=== PATIENT | female | born 1960 | race Caucasian/White ===

== ENCOUNTER 2018-01-13 16:05 | Inpatient (IN) ==
[2018-01-13] MEDS ORDERED: 0.9 % Sodium Chloride 1,000 ML IVC ONE (16:19)
[2018-01-13] MEDS ORDERED: Ondansetron 4 MG/2 ML VIAL IVP ONE ×2 (16:21→18:07)
--- NOTE | 2018-01-13 16:24 | Emergency Department Note ---
Disposition Clinical Impression: Colitis Disposition: Admitted As Inpatient Condition: Fair General Adult HPI - General Chief complaint: ED Dizziness Stated complaint: low bp, weakness Time Seen by Provider: 01/13/18 16:08 Source: patient, EMS Limitations: no limitations Nursing Notes Reviewed: Yes Vital Signs Reviewed: Yes - History of Present Illness Pain Scale: 5 - Related Data Home Medications Medication Instructions Recorded Confirmed Albuterol Sulfate [Albuterol 2 puff IH Q4HR 12/13/15 01/13/18 Inhaler] Aspirin [Lo-Dose Aspirin EC] 81 mg PO DAILY 12/13/15 01/13/18 Ibuprofen [Motrin] 600 mg PO Q8HR PRN 12/13/15 01/13/18 Loratadine [Allergy Relief] 10 mg PO DAILY 12/13/15 01/13/18 Metoprolol [Lopressor] 50 mg PO DAILY 12/13/15 01/13/18 Nitroglycerin [Nitrostat] 0.4 mg SL PRN PRN 12/13/15 01/13/18 RX: Melatonin 5 mg PO HS 12/13/15 01/13/18 RX: metFORMIN [Glucophage] 1,000 mg PO DAILY 12/13/15 01/13/18 Ranolazine [Ranexa] 1,000 mg PO BID 12/13/15 01/13/18 Cholecalciferol (Vitamin D3) 2,000 unit PO DAILY 07/11/17 01/13/18 [Vitamin D3] Cyanocobalamin (Vitamin B-12) 1,000 mcg PO DAILY 07/11/17 01/13/18 [Vitamin B-12] Gabapentin [Neurontin] 300 mg PO BID 07/11/17 01/13/18 Pantoprazole Sodium [Protonix] 40 mg PO QAM 07/11/17 01/13/18 Rosuvastatin Calcium [Crestor] 10 mg PO DAILY 07/11/17 01/13/18 Fluticasone/Vilanterol [Breo 1 puff IH DAILY 01/13/18 01/13/18 Ellipta 200-25 Mcg INH] RX: Lisinopril-HCTZ 20-12.5 1 tab PO Q12H 01/13/18 01/13/18 [Prinzide 20-12.5] RX: Trazodone HCl 150 mg PO HS 01/13/18 01/13/18 Roflumilast [Daliresp] 500 mcg PO DAILY 01/13/18 01/13/18 Tiotropium [place] [Spiriva 2 puff IH DAILY 01/13/18 01/13/18 Respimat] Allergies Allergy/AdvReac Type Severity Reaction Status Date / Time aminophylline Allergy Anaphylaxis Verified 07/11/17 19:55 atorvastatin AdvReac Gastrointestinal Verified 07/11/17 19:55 Upset Penicillins AdvReac Hives Verified 07/11/17 19:55 Sulfa (Sulfonamide AdvReac Hives Verified 07/11/17 19:55 Antibiotics) regadenosen Allergy Swelling Uncoded 07/11/17 19:55 of Lip/Tongue/Throat Past Medical History - Past Medical History Medical history: Reports: asthma, cancer, COPD, diabetes, hypertension, myocardial infarction Surgical history: Reports: angioplasty/stent, cancer surgery, cholecystectomy Psychiatric history: Reports: no psych history 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 - Social History Smoking Status: Former smoker Smokeless Tobacco Status: No Alcohol use: Reports: none Drug use: Reports: none Physical Exam - General Limitations: no limitations General appearance: alert, in no apparent distress Course Vital Signs Temperature 98.3 F 01/13/18 16:14 Pulse Rate 71 01/13/18 16:14 Respiratory Rate 18 01/13/18 16:14 Blood Pressure 90/63 01/13/18 16:14 O2 Sat by Pulse Oximetry 97 01/13/18 16:14 Temperature 98.3 F 01/13/18 16:14 Pulse Rate 74 01/13/18 21:06 Respiratory Rate 18 01/13/18 21:06 Blood Pressure 112/79 01/13/18 21:06 O2 Sat by Pulse Oximetry 95 01/13/18 21:06 Oxygen Delivery Oxygen Delivery Room Air Medical Decision Making - [facility] Narrative Medical decision making narrative: Chest X-Ray 01/13/18 16:19 IMPRESSION: No acute abnormality detected. D/ / Chandra Melchor MD / Chandra Melchor MD Interpreting Provider: Chandra Melchor MD Abdomen/Pelvis CT 11/16/18 16:58 IMPRESSION: 1. Inflammatory changes involving a 10 cm segment of the proximal right colon and cecum concerning for acute mild-moderate colitis. No abscess. No free intraperitoneal air. Follow-up recommended to confirm resolution. 2. Normal appendix. D/ / 01/13/2018 18:01:51 Antonio Trammell MD / gelacio Interpreting Provider: Antonio Trammell MD 1800 hrs.: Patient has colitis as we suspected no signs of abscess or appendicitis. We will bring her into the hospital. Her blood pressures now in the low 100s. I think with her living is happened to her today be prudent to bring her into the hospital. She is in agreement with this plan. Impressions abdominal pain nausea vomiting dehydration, hypotension improved, and colitis. - Lab Data Result diagrams: 01/13/18 16:35 01/13/18 16:35 Lab Results 01/13/18 01/13/18 01/13/18 Range/Units 16:25 16:35 16:35 WBC 3.6 L (4.3-11.1) K/mcL RBC 3.91 (3.82-4.97) M/mcL Hgb 12.7 (11.5-15.4) g/dL Hct 36.2 (35.3-44.9) % MCV 92.6 (83.0-100.0) fL MCH 32.5 (28.0-33.3) pg MCHC 35.1 (31.6-35.5) g/dL RDW 13.2 (11.5-14.5) % Plt Count 97 L (140-400) K/mcL MPV 11.5 (9.4-12.4) fL Immature Gran % 0.6 (0-4) % Seg Neutrophils % 55.8 % Lymphocytes % 32.7 % Monocytes % 10.0 % Eosinophils % 0.6 % Basophils % 0.3 % Neutrophils # 2.0 (1.6-8.9) K/mcL Lymphocytes # 1.2 (0.6-4.6) K/mcL Monocytes # 0.4 (0.0-1.3) K/mcL Eosinophils # 0.0 (0.0-0.6) K/mcL Basophils # 0.0 (0.0-0.2) K/mcL Reactive Lymphocytes Present A (Not Present) Platelet Estimate Decreased L (Normal) Immature Plt Fraction 7.6 H (1.1-6.1) % Sodium 140 (136-145) mEq/L Potassium 2.6 L (3.5-5.1) mEq/L Chloride 103 (98-107) mEq/L Carbon Dioxide 29 (23-29) mEq/L BUN 33 H (6-20) mg/dL Creatinine 1.37 H (0.60-1.20) mg/dL Est GFR ( Amer) 49 L (> 60) Est GFR (Non-Af Amer) 40 L (> 60) BUN/Creatinine Ratio 24 (6-26) Glucose 110 H (70-105) mg/dL Calculated Osmolality 298 (280-300) Lactic Acid (0.5-2.2) mmol/L Calcium 8.5 L (8.6-10.3) mg/dL Total Bilirubin 0.2 L (0.3-1.0) mg/dL AST 20 (13-39) Units/L ALT 15 (7-52) Units/L Alkaline Phosphatase 39 (34-104) Units/L Troponin I 0.03 (< 0.04) ng/mL Serum Total Protein 5.7 L (6.4-8.9) g/dL Albumin 3.3 L (3.5-5.7) g/dL Globulin 2.4 (2.4-3.5) g/dL Albumin/Globulin Ratio 1.4 (1.1-2.2) TSH 1.093 (0.340-5.600) mcIU/mL Urine Color (Yellow) Urine Clarity (Clear) Urine pH (5.0-8.0) pH Units Ur Specific [place] (1.010-1.025) Urine Protein (Neg-Trace) mg/dL Urine Glucose (UA) (Normal) mg/dL Urine Ketones (Negative) mg/dL Urine Blood (Negative) Urine Nitrite (Negative) Urine Bilirubin (Negative) Urine Urobilinogen (Normal) mg/dL Ur Leukocyte Esterase (Negative) Urine Microscopic RBC (0-3) per hpf Urine Microscopic WBC (0-3) per hpf Ur Squamous Epith Cells (None-Few) per lpf Urine Bacteria (None-Few) per hpf Hyaline Casts (None-Few) per lpf Ur Culture Indicated? (NO) Stool Occult Bld Scrn Positive A (Negative) 01/13/18 01/13/18 Range/Units 16:35 17:05 WBC (4.3-11.1) K/mcL RBC (3.82-4.97) M/mcL Hgb (11.5-15.4) g/dL Hct (35.3-44.9) % MCV (83.0-100.0) fL MCH (28.0-33.3) pg MCHC (31.6-35.5) g/dL RDW (11.5-14.5) % Plt Count (140-400) K/mcL MPV (9.4-12.4) fL Immature Gran % (0-4) % Seg Neutrophils % % Lymphocytes % % Monocytes % % Eosinophils % % Basophils % % Neutrophils # (1.6-8.9) K/mcL Lymphocytes # (0.6-4.6) K/mcL Monocytes # (0.0-1.3) K/mcL Eosinophils # (0.0-0.6) K/mcL Basophils # (0.0-0.2) K/mcL Reactive Lymphocytes (Not Present) Platelet Estimate (Normal) Immature Plt Fraction (1.1-6.1) % Sodium (136-145) mEq/L Potassium (3.5-5.1) mEq/L Chloride (98-107) mEq/L Carbon Dioxide (23-29) mEq/L BUN (6-20) mg/dL Creatinine (0.60-1.20) mg/dL Est GFR ( Amer) (> 60) Est GFR (Non-Af Amer) (> 60) BUN/Creatinine Ratio (6-26) Glucose (70-105) mg/dL Calculated Osmolality (280-300) Lactic Acid 0.8 (0.5-2.2) mmol/L Calcium (8.6-10.3) mg/dL Total Bilirubin (0.3-1.0) mg/dL AST (13-39) Units/L ALT (7-52) Units/L Alkaline Phosphatase (34-104) Units/L Troponin I (< 0.04) ng/mL Serum Total Protein (6.4-8.9) g/dL Albumin (3.5-5.7) g/dL Globulin (2.4-3.5) g/dL Albumin/Globulin Ratio (1.1-2.2) TSH (0.340-5.600) mcIU/mL Urine Color Yellow (Yellow) Urine Clarity Cloudy A (Clear) Urine pH 7.0 (5.0-8.0) pH Units Ur Specific [place] 1.005 L (1.010-1.025) Urine Protein Trace (Neg-Trace) mg/dL Urine Glucose (UA) Normal (Normal) mg/dL Urine Ketones Negative (Negative) mg/dL Urine Blood Negative (Negative) Urine Nitrite Negative (Negative) Urine Bilirubin Negative (Negative) Urine Urobilinogen Normal (Normal) mg/dL Ur Leukocyte Esterase Negative (Negative) Urine Microscopic RBC 3-5 H (0-3) per hpf Urine Microscopic WBC 3-5 H (0-3) per hpf Ur Squamous Epith Cells Many H (None-Few) per lpf Urine Bacteria None Seen (None-Few) per hpf Hyaline Casts None Seen (None-Few) per lpf Ur Culture Indicated? NO (NO) Stool Occult Bld Scrn (Negative) Critical Care Time Critical Care Time: Yes Total Critical Care Time: 34 Attestation: Excluding any seperatly billable procedures Attestation Statement - Attestation Attestation: This documentation is done with the assistance of Dragon dictation. Despite e fforts made to ensure accuracy, there may be inaccuracies in air sealing technician or spelling and typographical errors. I examined this patient and my medical decision-making was reviewed with the Resident Physician. I agree with the documented findings, disposition and treatment plan as described except to the extent set forth below. Patient seen and evaluated by Dr. Steward and myself, I agree with his evaluation and management plan, I supervised care the patient's stay. Patient presents with low blood pressure home with with a systolic 74. She has been lightheaded. She said last 3 days she has had nausea vomiting and diarrhea said a lot of cramping in her abdomen. Denies any chest pain. Known ulcers L at home. She started on some Zofran by her primary care physician yesterday and also started on some loperamide. Should she has had diarrhea since then. Were going to fluid hydrate her. Give her something for nausea check labs CT her abdomen and reassess. She is in agreement with this plan.
--- NOTE | 2018-01-13 16:38 | Emergency Department Note ---
Disposition Clinical Impression: Colitis Disposition: Admitted As Inpatient Condition: Fair General Adult HPI - General Chief complaint: ED Dizziness Stated complaint: low bp, weakness Time Seen by Provider: 01/13/18 16:08 Source: patient, EMS Limitations: no limitations - History of Present Illness HPI Narrative: Patient is a 57 year old female with PMH of CAD, COPD, HTN, DM2 who presents with "low blood pressure" with history of 5 days of nausea, vomiting, diarrhea. Pt reports that she has been having 5 episodes of nonbloody emesis and numerous episodes of diarrhea per day. Pt reports that she has seen BRB in her stool for the past three days. Pt reports associated diffuse generalized abdominal pain. Pt states that she went to her PCP yesterday who prescribed her with zofran and lamotil for her symptoms. Pt reports no vomiting and diarrhea in the past 24 hrs. Pt has been able to tolerate jello and gatorade in past 24 hrs. Pt reports that her mother took her blood pressure today and it was 70s/30s. Pt called her PCP who advised her to come to the ED. Patient denies syncope, CP, SOB, cough, congestion, CHAN, numbness, weakness.. Pain Scale: 5 - Related Data Home Medications Medication Instructions Recorded Confirmed Albuterol Sulfate [Albuterol 2 puff IH Q4HR 12/13/15 01/13/18 Inhaler] Aspirin [Lo-Dose Aspirin EC] 81 mg PO DAILY 12/13/15 01/13/18 Ibuprofen [Motrin] 600 mg PO Q8HR PRN 12/13/15 01/13/18 Loratadine [Allergy Relief] 10 mg PO DAILY 12/13/15 01/13/18 Melatonin 5 mg PO HS 12/13/15 01/13/18 Metoprolol [Lopressor] 50 mg PO DAILY 12/13/15 01/13/18 Nitroglycerin [Nitrostat] 0.4 mg SL PRN PRN 12/13/15 01/13/18 Ranolazine [Ranexa] 1,000 mg PO BID 12/13/15 01/13/18 metFORMIN [Glucophage] 1,000 mg PO DAILY 12/13/15 01/13/18 Cholecalciferol (Vitamin D3) 2,000 unit PO DAILY 07/11/17 01/13/18 [Vitamin D3] Cyanocobalamin (Vitamin B-12) 1,000 mcg PO DAILY 07/11/17 01/13/18 [Vitamin B-12] Gabapentin [Neurontin] 300 mg PO BID 07/11/17 01/13/18 Pantoprazole Sodium [Protonix] 40 mg PO QAM 07/11/17 01/13/18 Rosuvastatin Calcium [Crestor] 10 mg PO DAILY 07/11/17 01/13/18 Fluticasone/Vilanterol [Breo 1 puff IH DAILY 01/13/18 01/13/18 Ellipta 200-25 Mcg INH] Lisinopril-HCTZ 20-12.5 [Prinzide 1 tab PO Q12H 01/13/18 01/13/18 20-12.5] Roflumilast [Daliresp] 500 mcg PO DAILY 01/13/18 01/13/18 Tiotropium [place] [Spiriva 2 puff IH DAILY 01/13/18 01/13/18 Respimat] Trazodone HCl 150 mg PO HS 01/13/18 01/13/18 Allergies Allergy/AdvReac Type Severity Reaction Status Date / Time aminophylline Allergy Anaphylaxis Verified 07/11/17 19:55 atorvastatin AdvReac Gastrointestinal Verified 07/11/17 19:55 Upset Penicillins AdvReac Hives Verified 07/11/17 19:55 Sulfa (Sulfonamide AdvReac Hives Verified 07/11/17 19:55 Antibiotics) regadenosen Allergy Swelling Uncoded 07/11/17 19:55 of Lip/Tongue/Throat Constitutional: Reports: chills. Denies: fever ENT ED: Denies: throat pain, congestion Cardiovascular: Denies: chest pain, palpitations, syncope Respiratory: Denies: cough, dyspnea Gastrointestinal: Reports: abdominal pain, nausea, vomiting, diarrhea, other (BRB per stool) Genitourinary: Denies: dysuria, hematuria Musculoskeletal: Denies: back pain Neurological: Denies: headache, weakness, numbness Past Medical History - Past Medical History Medical history: Reports: asthma, cancer, COPD, diabetes, hypertension, myocardial infarction Surgical history: Reports: angioplasty/stent, cancer surgery, cholecystectomy Psychiatric history: Reports: no psych history 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 - Social History Smoking Status: Former smoker Smokeless Tobacco Status: No Alcohol use: Reports: none Drug use: Reports: none Physical Exam - General Limitations: no limitations General appearance: alert, in no apparent distress - Head Head exam: atraumatic, normocephalic - ENT ENT exam: mucous membranes dry - Chest Chest inspection: Present: normal inspection, symmetric chest wall rise - Respiratory Respiratory exam: Present: normal lung sounds bilaterally - Cardiovascular Cardiovascular exam: Present: regular rate, normal rhythm, normal heart sounds - Abdominal Exam Abdominal exam: Present: soft, tenderness, distention. Absent: guarding, rebound Abdominal tenderness: Present: diffuse - Extremities Exam Extremities exam: Present: normal inspection, full ROM. Absent: tenderness, pedal edema - Expanded Lower Extremity Exam Neurovascular/Tendon exam: Present: normal capillary refill - Back Exam Back exam: Absent: tenderness, CVA tenderness (R), CVA tenderness (L) - Neurological Exam Neurological exam: Present: alert, oriented X3 - Skin Skin exam: Present: warm, dry, intact, normal color Course Vital Signs Temperature 98.3 F 01/13/18 16:14 Pulse Rate 71 01/13/18 16:14 Respiratory Rate 18 01/13/18 16:14 Blood Pressure 90/63 01/13/18 16:14 O2 Sat by Pulse Oximetry 97 01/13/18 16:14 Temperature 98.3 F 01/13/18 16:14 Pulse Rate 71 01/13/18 16:14 Respiratory Rate 18 01/13/18 16:14 Blood Pressure 90/63 01/13/18 16:14 O2 Sat by Pulse Oximetry 97 01/13/18 16:14 Oxygen Delivery Oxygen Delivery Room Air Medical Decision Making - Lab Data Result diagrams: 01/13/18 16:35 01/13/18 16:35
--- NOTE | 2018-01-13 16:50 | Emergency Department Note ---
Disposition Clinical Impression: Colitis Disposition: Admitted As Inpatient Condition: Fair Referrals: Concepción Romero MD [Primary Care Provider] - Forms: ED Satisfaction Letter Time of Disposition: 19:50 General Adult HPI - General Chief complaint: ED Dizziness Stated complaint: low bp, weakness Time Seen by Provider: 01/13/18 16:08 Source: patient, EMS Mode of arrival: ambulatory Limitations: no limitations Nursing Notes Reviewed: Yes Vital Signs Reviewed: Yes - History of Present Illness HPI Narrative: Patient is a 57-year-old female with past medical history of COPD, diabetes, HTN, HI, presents to the emergency department for evaluation of nausea, vomiting and diarrhea. Patient states that her symptoms of been going on for the past 5 days. Patient states that she has noticed a small amount of light red blood in her stools. She is seen by her PCP yesterday in which she was prescribed Zofran and Lomotil. Patient states her symptoms have resolved since yesterday and she has been able tolerate by mouth with the medications described by PCP however she continues to have abdominal pain which she states have been going on for the past 3 days. She points to her left lower quadrant as the location of pain. Pain Scale: 5 - Related Data Home Medications Medication Instructions Recorded Confirmed Albuterol Sulfate [Albuterol 2 puff IH Q4HR 12/13/15 01/13/18 Inhaler] Aspirin [Lo-Dose Aspirin EC] 81 mg PO DAILY 12/13/15 01/13/18 Ibuprofen [Motrin] 600 mg PO Q8HR PRN 12/13/15 01/13/18 Loratadine [Allergy Relief] 10 mg PO DAILY 12/13/15 01/13/18 Melatonin 5 mg PO HS 12/13/15 01/13/18 Metoprolol [Lopressor] 50 mg PO DAILY 12/13/15 01/13/18 Nitroglycerin [Nitrostat] 0.4 mg SL PRN PRN 12/13/15 01/13/18 Ranolazine [Ranexa] 1,000 mg PO BID 12/13/15 01/13/18 metFORMIN [Glucophage] 1,000 mg PO DAILY 12/13/15 01/13/18 Cholecalciferol (Vitamin D3) 2,000 unit PO DAILY 07/11/17 01/13/18 [Vitamin D3] Cyanocobalamin (Vitamin B-12) 1,000 mcg PO DAILY 07/11/17 01/13/18 [Vitamin B-12] Gabapentin [Neurontin] 300 mg PO BID 07/11/17 01/13/18 Pantoprazole Sodium [Protonix] 40 mg PO QAM 07/11/17 01/13/18 Rosuvastatin Calcium [Crestor] 10 mg PO DAILY 07/11/17 01/13/18 Fluticasone/Vilanterol [Breo 1 puff IH DAILY 01/13/18 01/13/18 Ellipta 200-25 Mcg INH] Lisinopril-HCTZ 20-12.5 [Prinzide 1 tab PO Q12H 01/13/18 01/13/18 20-12.5] Roflumilast [Daliresp] 500 mcg PO DAILY 01/13/18 01/13/18 Tiotropium [place] [Spiriva 2 puff IH DAILY 01/13/18 01/13/18 Respimat] Trazodone HCl 150 mg PO HS 01/13/18 01/13/18 Allergies Allergy/AdvReac Type Severity Reaction Status Date / Time aminophylline Allergy Anaphylaxis Verified 07/11/17 19:55 atorvastatin AdvReac Gastrointestinal Verified 07/11/17 19:55 Upset Penicillins AdvReac Hives Verified 07/11/17 19:55 Sulfa (Sulfonamide AdvReac Hives Verified 07/11/17 19:55 Antibiotics) regadenosen Allergy Swelling Uncoded 07/11/17 19:55 of Lip/Tongue/Throat All systems ED: reviewed and negative except as stated. Review of Systems: As Per HPI Constitutional: Reports: chills. Denies: fever ENT ED: Denies: throat pain, congestion Cardiovascular: Denies: chest pain, palpitations, syncope Respiratory: Denies: cough, dyspnea Gastrointestinal: Reports: abdominal pain, nausea, vomiting, diarrhea, other (BRB per stool) Genitourinary: Denies: dysuria, hematuria Musculoskeletal: Denies: back pain Neurological: Denies: headache, weakness, numbness Past Medical History - Past Medical History Attestation: Yes The following information was validated with the patient. 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 No acute distress at this time. BP is 98 systolic at this time. - General Limitations: no limitations General appearance: alert, in no apparent distress - Head Head exam: atraumatic, normocephalic, normal inspection - Eye Eye exam: Present: normal appearance, PERRL, EOMI - ENT ENT exam: normal exam, mucous membranes dry, TM's normal bilaterally - Neck Neck exam: Present: normal inspection, full ROM, trachea midline - Chest Chest inspection: Present: normal inspection, symmetric chest wall rise. Absent: tenderness - Respiratory Respiratory exam: Present: normal lung sounds bilaterally. Absent: respiratory distress, wheezes - Cardiovascular Cardiovascular exam: Present: regular rate, normal rhythm, normal heart sounds, +S1, +S2 - Abdominal Exam Abdominal exam: Present: tenderness, guarding, normal bowel sounds. Absent: distention, rebound, rigidity Abdominal tenderness: Present: LLQ - Extremities Exam Extremities exam: Present: normal inspection, full ROM, normal capillary refill. Absent: tenderness - Back Exam Back exam: Present: normal inspection, full ROM. Absent: tenderness - Neurological Exam Neurological exam: Present: alert, oriented X3 - Psychiatric Psychiatric exam: Present: normal affect, normal mood - Skin Skin exam: Present: warm, dry, intact, normal color Course Course Narrative: Patient underwent evaluation for her symptoms of nausea, vomiting and diarrhea. She is found to be hypokalemic at 2.6. She is also found to have AK I. Patient received 2 L of fluid which improved her blood pressure from the 90s systolic to the 120s systolic. She is feeling much better after fluids. CT scan was concerning for colitis. I discussed the patient's case with the hospitalist on- call plan to bring her in for admission for further management. Dr. Palacios agreed to accept the patient requested that I add on a C. difficile panel as well as metronidazole and ciprofloxacin. Vital Signs Temperature 98.3 F 01/13/18 16:14 Pulse Rate 71 01/13/18 16:14 Respiratory Rate 18 01/13/18 16:14 Blood Pressure 90/63 01/13/18 16:14 O2 Sat by Pulse Oximetry 97 01/13/18 16:14 Temperature 98.3 F 01/13/18 16:14 Pulse Rate 72 01/13/18 18:49 Respiratory Rate 18 01/13/18 18:49 Blood Pressure 118/74 01/13/18 18:49 O2 Sat by Pulse Oximetry 97 01/13/18 18:49 Oxygen Delivery Oxygen Delivery Room Air Medical Decision Making - Medical Records Medical records reviewed: Yes I reviewed the patient's medical records. - Lab Data Lab results reviewed: Yes I reviewed the patient's lab results. Result diagrams: 01/13/18 16:35 01/13/18 16:35 Lab Results 01/13/18 01/13/18 01/13/18 Range/Units 16:25 16:35 16:35 WBC 3.6 L (4.3-11.1) K/mcL RBC 3.91 (3.82-4.97) M/mcL Hgb 12.7 (11.5-15.4) g/dL Hct 36.2 (35.3-44.9) % MCV 92.6 (83.0-100.0) fL MCH 32.5 (28.0-33.3) pg MCHC 35.1 (31.6-35.5) g/dL RDW 13.2 (11.5-14.5) % Plt Count 97 L (140-400) K/mcL MPV 11.5 (9.4-12.4) fL Immature Gran % 0.6 (0-4) % Seg Neutrophils % 55.8 % Lymphocytes % 32.7 % Monocytes % 10.0 % Eosinophils % 0.6 % Basophils % 0.3 % Neutrophils # 2.0 (1.6-8.9) K/mcL Lymphocytes # 1.2 (0.6-4.6) K/mcL Monocytes # 0.4 (0.0-1.3) K/mcL Eosinophils # 0.0 (0.0-0.6) K/mcL Basophils # 0.0 (0.0-0.2) K/mcL Reactive Lymphocytes Present A (Not Present) Platelet Estimate Decreased L (Normal) Immature Plt Fraction 7.6 H (1.1-6.1) % Sodium 140 (136-145) mEq/L Potassium 2.6 L (3.5-5.1) mEq/L Chloride 103 (98-107) mEq/L Carbon Dioxide 29 (23-29) mEq/L BUN 33 H (6-20) mg/dL Creatinine 1.37 H (0.60-1.20) mg/dL Est GFR ( Amer) 49 L (> 60) Est GFR (Non-Af Amer) 40 L (> 60) BUN/Creatinine Ratio 24 (6-26) Glucose 110 H (70-105) mg/dL Calculated Osmolality 298 (280-300) Lactic Acid (0.5-2.2) mmol/L Calcium 8.5 L (8.6-10.3) mg/dL Total Bilirubin 0.2 L (0.3-1.0) mg/dL AST 20 (13-39) Units/L ALT 15 (7-52) Units/L Alkaline Phosphatase 39 (34-104) Units/L Troponin I 0.03 (< 0.04) ng/mL Serum Total Protein 5.7 L (6.4-8.9) g/dL Albumin 3.3 L (3.5-5.7) g/dL Globulin 2.4 (2.4-3.5) g/dL Albumin/Globulin Ratio 1.4 (1.1-2.2) TSH 1.093 (0.340-5.600) mcIU/mL Urine Color (Yellow) Urine Clarity (Clear) Urine pH (5.0-8.0) pH Units Ur Specific [place] (1.010-1.025) Urine Protein (Neg-Trace) mg/dL Urine Glucose (UA) (Normal) mg/dL Urine Ketones (Negative) mg/dL Urine Blood (Negative) Urine Nitrite (Negative) Urine Bilirubin (Negative) Urine Urobilinogen (Normal) mg/dL Ur Leukocyte Esterase (Negative) Urine Microscopic RBC (0-3) per hpf Urine Microscopic WBC (0-3) per hpf Ur Squamous Epith Cells (None-Few) per lpf Urine Bacteria (None-Few) per hpf Hyaline Casts (None-Few) per lpf Ur Culture Indicated? (NO) Stool Occult Bld Scrn Positive A (Negative) 01/13/18 01/13/18 Range/Units 16:35 17:05 WBC (4.3-11.1) K/mcL RBC (3.82-4.97) M/mcL Hgb (11.5-15.4) g/dL Hct (35.3-44.9) % MCV (83.0-100.0) fL MCH (28.0-33.3) pg MCHC (31.6-35.5) g/dL RDW (11.5-14.5) % Plt Count (140-400) K/mcL MPV (9.4-12.4) fL Immature Gran % (0-4) % Seg Neutrophils % % Lymphocytes % % Monocytes % % Eosinophils % % Basophils % % Neutrophils # (1.6-8.9) K/mcL Lymphocytes # (0.6-4.6) K/mcL Monocytes # (0.0-1.3) K/mcL Eosinophils # (0.0-0.6) K/mcL Basophils # (0.0-0.2) K/mcL Reactive Lymphocytes (Not Present) Platelet Estimate (Normal) Immature Plt Fraction (1.1-6.1) % Sodium (136-145) mEq/L Potassium (3.5-5.1) mEq/L Chloride (98-107) mEq/L Carbon Dioxide (23-29) mEq/L BUN (6-20) mg/dL Creatinine (0.60-1.20) mg/dL Est GFR ( Amer) (> 60) Est GFR (Non-Af Amer) (> 60) BUN/Creatinine Ratio (6-26) Glucose (70-105) mg/dL Calculated Osmolality (280-300) Lactic Acid 0.8 (0.5-2.2) mmol/L Calcium (8.6-10.3) mg/dL Total Bilirubin (0.3-1.0) mg/dL AST (13-39) Units/L ALT (7-52) Units/L Alkaline Phosphatase (34-104) Units/L Troponin I (< 0.04) ng/mL Serum Total Protein (6.4-8.9) g/dL Albumin (3.5-5.7) g/dL Globulin (2.4-3.5) g/dL Albumin/Globulin Ratio (1.1-2.2) TSH (0.340-5.600) mcIU/mL Urine Color Yellow (Yellow) Urine Clarity Cloudy A (Clear) Urine pH 7.0 (5.0-8.0) pH Units Ur Specific [place] 1.005 L (1.010-1.025) Urine Protein Trace (Neg-Trace) mg/dL Urine Glucose (UA) Normal (Normal) mg/dL Urine Ketones Negative (Negative) mg/dL Urine Blood Negative (Negative) Urine Nitrite Negative (Negative) Urine Bilirubin Negative (Negative) Urine Urobilinogen Normal (Normal) mg/dL Ur Leukocyte Esterase Negative (Negative) Urine Microscopic RBC 3-5 H (0-3) per hpf Urine Microscopic WBC 3-5 H (0-3) per hpf Ur Squamous Epith Cells Many H (None-Few) per lpf Urine Bacteria None Seen (None-Few) per hpf Hyaline Casts None Seen (None-Few) per lpf Ur Culture Indicated? NO (NO) Stool Occult Bld Scrn (Negative) - Radiology Data Radiology results reviewed: Yes I reviewed the patient's radiology results. Chest X-Ray 01/13/18 16:19 IMPRESSION: No acute abnormality detected. D/ / Chandra Melchor MD / Chandra Melchor MD Interpreting Provider: Chandra Melchor MD Abdomen/Pelvis CT 01/13/18 16:58 IMPRESSION: 1. Inflammatory changes involving a 10 cm segment of the proximal right colon and cecum concerning for acute mild-moderate colitis. No abscess. No free intraperitoneal air. Follow-up recommended to confirm resolution. 2. Normal appendix. D/ / 01/13/2018 18:01:51 Antonio Trammell MD / gelacio Interpreting Provider: Antonio Trammell MD - EKG Data EKG #1 EKG attestation: Yes I reviewed and interpreted this EKG. EKG results narrative: EKG done at 16:46 shows sinus rhythm at a rate of 70 bpm. Normal axis. Intervals show a Q TC of 553. No STEMI.
[2018-01-13 16:55] LABS: Basophils % 0.3 %; Eosinophils % 0.6 %; Hematocrit 36.2 % (35.3-44.9); Hemoglobin 12.7 g/dL (11.5-15.4); Immature Granulocytes % 0.6 % (0-4); Immature Platelets 7.6 % (1.1-6.1); Lymphocytes # 1.2 K/mcL (0.6-4.6); Lymphocytes % 32.7 %; Mean Corpuscular HGB Conc 35.1 g/dL (31.6-35.5); Mean Corpuscular Hemoglobin 32.5 pg (28.0-33.3); Mean Corpuscular Volume 92.6 fL (83.0-100.0); Mean Platelet Volume 11.5 fL (9.4-12.4); Monocytes # 0.4 K/mcL (0.0-1.3); Red Blood Count 3.91 M/mcL (3.82-4.97); Red Cell Distribution Width 13.2 % (11.5-14.5); Segmented Neutrophils % 55.8 %
[2018-01-13 16:57] LABS: Platelet Count 97 K/mcL (140-400)
[2018-01-13] MEDS ORDERED: Isovue-370 500 ML INFUS..BTL IV ONE (16:58)
[2018-01-13 17:07] LABS: Platelet Estimate Decreased (Normal); Reactive Lymphocytes Present (Not Present)
[2018-01-13 17:10] LABS: Troponin I 0.03 ng/mL (< 0.04)
[2018-01-13 17:14] LABS: Albumin 3.3 g/dL (3.5-5.7); Albumin/Globulin Ratio 1.4 (1.1-2.2); Bilirubin,Total 0.2 mg/dL (0.3-1.0); Calcium 8.5 mg/dL (8.6-10.3); Globulin 2.4 g/dL (2.4-3.5); Potassium 2.6 mEq/L (3.5-5.1); Total Protein 5.7 g/dL (6.4-8.9)
[2018-01-13 17:16] LABS: Bilirubin,Urine Negative (Negative); Blood,Urine Negative (Negative); Clarity,Urine Cloudy (Clear); Color,Urine Yellow (Yellow); Glucose,Urine (UA) Normal (Normal); Ketones,Urine Negative (Negative); Leukocyte Esterase,Urine Negative (Negative); Nitrite,Urine Negative (Negative); Protein,Urine Trace mg/dL (Neg-Trace); Specific Gravity,Urine 1.005 (1.010-1.025); Urobilinogen,Urine Normal (Normal)
[2018-01-13 17:18] LABS: Bacteria,Urine None Seen per hpf (None-Few); Hyaline Casts,Urine None Seen per lpf (None-Few); Squamous Epithelial Cell,Urine Many per lpf (None-Few)
[2018-01-13 17:22] LABS: Thyroid Stimulating Hormone 1.093 mcIU/mL (0.340-5.600)
[2018-01-13] MEDS ORDERED: Potassium Chloride 40 MEQ, Lidocaine 1% 2 ML in D5% in Water 500 ML IVPB ONE (17:37)
[2018-01-13] MEDS ORDERED: MetroNIDAZOLE 500 MG/100 ML 500 MG/100 ML BAG IVPB ONE (19:49)
[2018-01-13] MEDS ORDERED: Albuterol 2.5 MG/3 ML NEBULIZER IH PRN (22:27)
[2018-01-13] MEDS ORDERED: Naloxone 0.4 MG/ML INJ IVP PRN (22:27)
[2018-01-13] MEDS ORDERED: Dextrose Gel 15 GM/37.5 ML TUBE PO PRN ×2 (22:35)
[2018-01-13] MEDS ORDERED: *HR* Dextrose 50 % in Water (Syg) 50 ML SYRINGE IVP PRN (22:35)
[2018-01-13] MEDS ORDERED: D5% in Water 1,000 ML IVC PRN (22:35)
[2018-01-13] MEDS: 0.9 % Sodium Chloride w KCl 20 MEQ/1,000 ML MLS IVC SCH (23:10)
--- NOTE | 2018-01-13 23:12 | Internal Med History&Physical ---
Date of Encounter: 01/13/18 Time of Encounter: 22:00 Internal Medicine - H&P: HPI Chief complaint: abdominal pain Admitted From: Emergency Dept Plans for Post Hospital Care: Home History of present illness: Ms. Kapadia is a 57 year old female who presents to the ER tonight with about a one-week history of protracted nausea, vomiting, and a 5 day history of diarrhea with several days of bloody diarrhea. She has had significant abdominal pain and cramping. She saw her PCP who placed her on nausea medication and antidi arrheal medicine. Because of persistence of symptoms and bloody stools, she came to the ER. Workup in ER revealed patient to have evidence of colitis, particularly proximal colon, based upon CT imaging. She was therefore admitted to the hospitalist service. Upon my assessment of the patient, she reiterates the above history and has some minimal/vague abdominal pain. She appears dehydrated. She denies any recent antibiotic use or any hospitalizations recently. She denies eating any underco oked meats, raw fish, or any exotic foods. She has not had any ill contacts. She admits to having some subjective fevers and chills but no night sweats. Despite the above symptoms, she does have an appetite now. Of note, patient came to ER with hypotension and tachycardia. She was fluid resuscitated in the ER and started on antibiotics as advised by the admitting hospitalist. Unfortunately, blood cultures were not obtained in the ER prior to antibiotic use. Past Med Surg Social Fam HX - Past Medical History Attestation: Yes The following information was validated with the patient. Source: patient, old records reviewed Medical history: arthritis, asthma, cancer, COPD, diabetes, hypertension, myocardial infarction Additional medical history: sleep apnea Psychiatric history: anxiety, depression - Past Surgical History Surgical History: angioplasty/stent, cancer surgery, cholecystectomy, hysterectomy Additional surgical history: Polyps removed twice, surgery on nerves in L arm - Social History Smoking Status: Former smoker Smokeless Tobacco Status: No Alcohol use: none Drug use: none Current living situation: Home Activity Level: Independent ambulation Recent Out of Country Travel Within the Last 8 Weeks: No - Family History Mother Hx Family Cardiac Disorders: Yes Hx Family Respiratory Disorders: No Hx Family Cancer: Yes (breast) Hx Family GI Disorders: Yes (diverticulitis, polyps) Hx Family Endocrine Disorder: Yes Hx Family Musculoskeletal Disorders: Yes Hx Family Neuromuscular Disorders: No Hx Family Neurologic Disorders: Yes Hx Family HEENT Disorders: No Hx Family Autoimmune Disorders: No Hx Family Psychosocial Disorders: Yes Internal Medicine - H&P: Meds Albuterol Sulfate [Albuterol Inhaler] 2 puff IH Q4HR 12/13/15 [History] Aspirin [Lo-Dose Aspirin EC] 81 mg PO DAILY 12/13/15 [History] Ibuprofen [Motrin] 600 mg PO Q8HR PRN 12/13/15 [History] Loratadine [Allergy Relief] 10 mg PO DAILY 12/13/15 [History] Melatonin 5 mg PO HS 12/13/15 [History] Metoprolol [Lopressor] 50 mg PO DAILY 12/13/15 [History] Nitroglycerin [Nitrostat] 0.4 mg SL PRN PRN 12/13/15 [History] Ranolazine [Ranexa] 1,000 mg PO BID 12/13/15 [History] metFORMIN [Glucophage] 1,000 mg PO DAILY 12/13/15 [History] Cholecalciferol (Vitamin D3) [Vitamin D3] 2,000 unit PO DAILY 07/11/17 [History] Cyanocobalamin (Vitamin B-12) [Vitamin B-12] 1,000 mcg PO DAILY 07/11/17 [History] Gabapentin [Neurontin] 300 mg PO BID 07/11/17 [History] Pantoprazole Sodium [Protonix] 40 mg PO QAM 07/11/17 [History] Rosuvastatin Calcium [Crestor] 10 mg PO DAILY 07/11/17 [History] Fluticasone/Vilanterol [Breo Ellipta 200-25 Mcg INH] 1 puff IH DAILY 01/13/18 [History] Lisinopril-HCTZ 20-12.5 [Prinzide 20-12.5] 1 tab PO Q12H 01/13/18 [History] Roflumilast [Daliresp] 500 mcg PO DAILY 01/13/18 [History] Tiotropium [place] [Spiriva Respimat] 2 puff IH DAILY 01/13/18 [History] Trazodone HCl 150 mg PO HS 01/13/18 [History] Allergy/AdvReac Type Severity Reaction Status Date / Time aminophylline Allergy Anaphylaxis Verified 07/11/17 19:55 atorvastatin AdvReac Gastrointestinal Verified 07/11/17 19:55 Upset Penicillins AdvReac Hives Verified 07/11/17 19:55 Sulfa (Sulfonamide AdvReac Hives Verified 07/11/17 19:55 Antibiotics) regadenosen Allergy Swelling Uncoded 07/11/17 19:55 of Lip/Tongue/Throat - Constitutional Constitutional: chills, fever(s), no night sweats - EENT Eyes: no change in vision Ears: no ear pain, no tinnitus Nose, mouth and throat: no nasal congestion, no sinus pressure, no sore throat - Cardiovascular Cardiovascular ROS IM: no chest pain, no dyspnea, no orthopnea, no syncope - Respiratory Respiratory: no cough, no hemoptysis, no chest congestion, no excessive phlegm production, no change in phlegm color - Gastrointestinal Gastrointestinal: abdominal pain, diarrhea, hematochezia, nausea, vomiting, no coffee ground emesis, no hematemesis, no melena - Genitourinary Genitourinary: no dysuria, no flank pain, no hematuria - Musculoskeletal Musculoskeletal ROS IM: no arthralgias, no back pain - Integumentary Integumentary IM: no rash, no jaundice - Neurological Neurological ROS: no dizziness, no focal weakness, no frequent falls, no headache(s) - Psychiatric Psychiatric: no anxiety, no depression - Endocrine Endocrine IM: no polydipsia, no polyuria - Allergic/Immunologic Allergic/Immunologic: no wheezing, no GI upset with certain foods - Constitutional Vitals: Temp Pulse Resp BP Pulse Ox 98.3 F 74 18 112/79 95 01/13/18 16:14 01/13/18 21:06 01/13/18 21:06 01/13/18 21:06 01/13/18 21:06 General appearance: Present: cooperative, mild distress, A&O X 3, pleasant, answers questions appropriately Exam: appears mildly dehydrated; non-toxic - Head Head exam: Present: atraumatic, normal inspection - Eye Eye exam: Present: EOMI, PERRL. Absent: scleral icterus Pupils: Present: normal accommodation - ENT ENT exam: Present: mucous membranes dry, normal exam, normal oropharynx - Neck Neck exam general surgery: Present: full ROM, supple. Absent: tenderness, nuchal rigidity, thyromegaly - Respiratory Respiratory exam: Present: CTAB. Absent: chest wall tenderness, rales, respirat ory distress, rhonchi, tachypnea - Cardiovascular Cardiovascular exam: Present: distant heart sounds, RRR, +S1, +S2. Absent: diastolic murmur, systolic murmur - GI/Abdominal GI/Abdominal exam: Present: hypoactive bowel sounds, soft, tenderness (RMQ/RUQ), no peritoneal signs. Absent: guarding, hepatomegaly, mass, rebound, splenomegaly - Extremities Exam Extremities exam: Present: normal capillary refill, warm, radial pulses palpable and symmetrical. Absent: calf tenderness, pedal edema, tenderness - Back Exam Back exam: Absent: CVA tenderness (L), CVA tenderness (R) - Neurological Exam Neurological exam: Present: alert, CN II-XII intact, oriented X3, no focal deficits - Psychiatric Psychiatric exam: Present: normal affect, normal mood - Skin Skin exam: Present: dry, intact, warm. Absent: rash Internal Med - H&P Results - Labs CBC & Chem 7: 01/13/18 16:35 01/13/18 16:35 Labs: Short CBC 01/13/18 Range/Units 16:35 WBC 3.6 L (4.3-11.1) K/mcL Hgb 12.7 (11.5-15.4) g/dL Hct 36.2 (35.3-44.9) % Plt Count 97 L (140-400) K/mcL Neutrophils # 2.0 (1.6-8.9) K/mcL BMP 01/13/18 16:35 Sodium 140 Potassium 2.6 L Chloride 103 Carbon Dioxide 29 BUN 33 H Creatinine 1.37 H Glucose 110 H Calcium 8.5 L Cardiac Enzymes 01/13/18 Range/Units 16:35 Troponin I 0.03 (< 0.04) ng/mL Liver Function 01/13/18 Range/Units 16:35 Total Bilirubin 0.2 L (0.3-1.0) mg/dL AST 20 (13-39) Units/L ALT 15 (7-52) Units/L Alkaline Phosphatase 39 (34-104) Units/L Albumin 3.3 L (3.5-5.7) g/dL Urine 01/13/18 Range/Units 17:05 Urine Color Yellow (Yellow) Urine Clarity Cloudy A (Clear) Urine pH 7.0 (5.0-8.0) pH Units Ur Specific [place] 1.005 L (1.010-1.025) Urine Protein Trace (Neg-Trace) mg/dL Urine Glucose (UA) Normal (Normal) mg/dL - Impressions ITS Impressions Chest X-Ray 01/13/18 16:19 IMPRESSION: No acute abnormality detected. D/ / Chandar Melchor MD / Chandra Melchor MD Interpreting Provider: Chandra Melchor MD Abdomen/Pelvis CT 01/13/18 16:58 IMPRESSION: 1. Inflammatory changes involving a 10 cm segment of the proximal right colon and cecum concerning for acute mild-moderate colitis. No abscess. No free intraperitoneal air. Follow-up recommended to confirm resolution. 2. Normal appendix. D/ / 01/13/2018 18:01:51 Antonio Trammell MD / gelacio Interpreting Provider: Antonio Trammell MD - Diagnostic Studies CT scan - abdomen Status: image reviewed by me (colitis involving the proximal colon) - Assessment and plan (1) Sepsis Current Visit: Yes Status: Acute Assessment and plan: 1. I ordered STAT blood cultures, trending lactate levels, and continued IVF. 2. Will monitor closely on telemetry and hemodynamically. 3. Hold most of her home meds, especially diuretics. 4. Will continue IV antibiotics to cover GI sourav. Qualifiers: Sepsis type: sepsis due to unspecified organism Qualified Code(s): A41.9 - Sepsis, unspecified organism (2) Colitis Current Visit: Yes Status: Acute Assessment and plan: 1. IV antibiotics and IVF as above 2. NPO. 3. Consult surgery -- discussed with Dr. Vail. She does not need any acute intervention at this time in my opinion. (3) Diabetes type 2, controlled Current Visit: Yes Status: Chronic Assessment and plan: 1. Will monitor glucose and use SSI for now. 2. Hold oral home meds. Qualifiers: Diabetes mellitus detention insulin use: without fire extinguisher technician use Diabetes mellitus complication status: without complication Qualified Code(s): E11.9 - Type 2 diabetes mellitus without complications (4) CAD (coronary artery disease) Current Visit: Yes Status: Chronic Assessment and plan: 1. No anginal symptoms on history or exam. 2. Will order baseline EKG and monitor on telemetry. 3. Will schedule home meds when appropriate. Qualifiers: Coronary Disease-Associated Artery/Lesion type: [place] artery [place] vs. transplanted heart: [place] heart Associated angina: without angina Qualified Code(s): I25.10 - Atherosclerotic heart disease of [place] coronary artery without angina pectoris (5) DVT prophylaxis Current Visit: Yes Status: Acute Assessment and plan: 1. EPCD's.
[2018-01-13 23:29] LABS: INR 1.1; Prothrombin Time 11.9 Seconds (9.4-12.1)
[2018-01-13 23:31] LABS: Activated Partial Thrombo Time 29.5 Seconds (26.0-36.0)
[2018-01-13] MEDS ORDERED: Pantoprazole 40 MG VIAL IVP ONE (23:56)
[2018-01-14] MEDS: Insulin LISPRO 300 UNITS/3 ML VIAL SQ SCH ×5 (01:17→18:23)
[2018-01-14] MEDS ORDERED: *HR* Promethazine 25 MG/ML VIAL IVP ONE (04:15)
[2018-01-14 04:16] LABS: Basophils % 0.3 %; Eosinophils % 0.6 %; Hemoglobin 11.8 g/dL (11.5-15.4); Mean Corpuscular Volume 95.4 fL (83.0-100.0); Red Cell Distribution Width 13.2 % (11.5-14.5)
[2018-01-14 04:18] LABS: Hematocrit 35.6 % (35.3-44.9); Immature Granulocytes % 0.3 % (0-4); Immature Platelets 6.4 % (1.1-6.1); Lymphocytes # 1.4 K/mcL (0.6-4.6); Lymphocytes % 45.1 %; Mean Corpuscular HGB Conc 33.1 g/dL (31.6-35.5); Mean Corpuscular Hemoglobin 31.6 pg (28.0-33.3); Mean Platelet Volume 10.9 fL (9.4-12.4); Monocytes # 0.3 K/mcL (0.0-1.3); Monocytes % 8.6 %; Neutrophils # 1.4 K/mcL (1.6-8.9); Red Blood Count 3.73 M/mcL (3.82-4.97); Segmented Neutrophils % 45.1 %
[2018-01-14 04:20] LABS: Platelet Count 89 K/mcL (140-400)
[2018-01-14] MEDS: Ipratropium/Albuterol Neb 3 ML IH SCH ×4 (04:33→21:37)
[2018-01-14 04:34] LABS: Alanine Aminotransferase 13 Units/L (7-52); Albumin 3.1 g/dL (3.5-5.7); Albumin/Globulin Ratio 1.4 (1.1-2.2); Alkaline Phosphatase 33 Units/L (34-104); Aspartate Amino Transferase 16 Units/L (13-39); BUN/Creatinine Ratio 30 (6-26); Bilirubin,Total 0.2 mg/dL (0.3-1.0); Blood Urea Nitrogen 24 mg/dL (6-20); Carbon Dioxide 27 mEq/L (23-29); Chloride 106 mEq/L (98-107); Globulin 2.2 g/dL (2.4-3.5); Glucose 96 mg/dL (70-105); Magnesium 1.8 mg/dL (1.6-2.6); Osmolality,Calculated 296 (280-300); Potassium 2.8 mEq/L (3.5-5.1); Sodium 141 mEq/L (136-145); Total Protein 5.3 g/dL (6.4-8.9); eGFR For Non-African Americans > 60 (> 60)
[2018-01-14 05:24] LABS: Platelet Estimate Decreased (Normal)
[2018-01-14] MEDS ORDERED: NON-FORMULARY MEDICATION 1 EACH EACH (Tiotropium Bromide [Spiriva Respimat] 2 PUFF) IH SCH (09:00)
[2018-01-14] MEDS: MetroNIDAZOLE 500 MG/100 ML 500 MG/100 ML BAG IVPB SCH ×2 (09:08→16:36)
[2018-01-14] MEDS: Levofloxacin 750 MG/150 ML 750 MG/150 ML BAG IVPB SCH (09:09)
[2018-01-14] MEDS: Ranolazine 500 MG TAB.ER.12H PO SCH ×2 (09:09→20:31)
[2018-01-14] MEDS: Gabapentin 300 MG CAPSULE PO SCH ×2 (09:09→20:31)
[2018-01-14] MEDS: DALIRESP 500 MCG PO SCH (11:04)
[2018-01-14] MEDS: Breo Ellipta 200-25 Mcg IH SCH (11:04)
--- NOTE | 2018-01-14 12:29 | Internal Med Progress Note ---
<Angel Rosales - Last Filed: 01/14/18 13:28> Hospitalist Progress Note - Encounter Date of Encounter: 01/14/18 Time of Encounter: 13:28 - Exam Vitals: Temp Pulse Resp BP Pulse Ox 98.0 F 104 15 107/67 94 01/14/18 11:04 01/14/18 11:04 01/14/18 11:04 01/14/18 11:04 01/14/18 11:04 - Assessment and Plan (1) Diabetes type 2, controlled Current Visit: Yes Status: Chronic (2) CAD (coronary artery disease) Current Visit: Yes Status: Chronic (3) Colitis Current Visit: Yes Status: Acute (4) Sepsis Current Visit: Yes Status: Acute (5) DVT prophylaxis Current Visit: Yes Status: Acute - Time Spent with Patient Total time spent is greater than 50% in coordination of care (as documented) at patient's floor/unit and/or counseling patient: Internal Medicine: Result - Labs CBC & Chem 7: 01/14/18 04:03 01/14/18 04:03 Labs: Short CBC 01/13/18 01/14/18 Range/Units 16:35 04:03 WBC 3.6 L 3.2 L (4.3-11.1) K/mcL Hgb 12.7 11.8 (11.5-15.4) g/dL Hct 36.2 35.6 (35.3-44.9) % Plt Count 97 L 89 L (140-400) K/mcL Neutrophils # 2.0 1.4 L (1.6-8.9) K/mcL BMP 01/13/18 01/13/18 01/14/18 16:35 22:58 04:03 Sodium 140 141 Potassium 2.6 L 2.8 L 2.8 L Chloride 103 106 Carbon Dioxide 29 27 BUN 33 H 24 H Creatinine 1.37 H 0.80 Glucose 110 H 96 Calcium 8.5 L 8.0 L Cardiac Enzymes 01/13/18 Range/Units 16:35 Troponin I 0.03 (< 0.04) ng/mL Liver Function 01/13/18 01/14/18 Range/Units 16:35 04:03 Total Bilirubin 0.2 L 0.2 L (0.3-1.0) mg/dL AST 20 16 (13-39) Units/L ALT 15 13 (7-52) Units/L Alkaline Phosphatase 39 33 L (34-104) Units/L Albumin 3.3 L 3.1 L (3.5-5.7) g/dL Urine 01/13/18 Range/Units 17:05 Urine Color Yellow (Yellow) Urine Clarity Cloudy A (Clear) Urine pH 7.0 (5.0-8.0) pH Units Ur Specific [place] 1.005 L (1.010-1.025) Urine Protein Trace (Neg-Trace) mg/dL Urine Glucose (UA) Normal (Normal) mg/dL - ABG Interpretation ABG results: PT/INR, D-dimer PT 11.9 Seconds (9.4-12.1) 01/13/18 22:58 - Impressions Impressions Chest X-Ray 01/13/18 16:19 IMPRESSION: No acute abnormality detected. D/ / Chandra Melchor MD / Chandra Melchor MD Interpreting Provider: Chandra Melchor MD Abdomen/Pelvis CT 01/13/18 16:58 IMPRESSION: 1. Inflammatory changes involving a 10 cm segment of the proximal right colon and cecum concerning for acute mild-moderate colitis. No abscess. No free intraperitoneal air. Follow-up recommended to confirm resolution. 2. Normal appendix. D/ / 01/13/2018 18:01:51 Antonio Trammell MD / gelacio Interpreting Provider: Antonio Trammell MD Consult Discharge Plan - Plan Referrals: Concepción Romero MD [Primary Care Provider] - - Attending Attestation I saw evaluated and examined this patient and my medical decision-making was reviewed with the Resident Physician, Angelique León. I agree with the documented findings, disposition and treatment plan as described except to any changes set forth below. We independently had [id number] contact with the patient. Patient complains of nausea but also feels very hungry. Continues to have abd ominal pain in the lower abdomen. No longer has had diarrhea since coming in. No fevers or chills reported. No hematemesis or melena. On exam, patient is awake and alert. S1 and S2 normal. Breath sounds are normal. Abdomen is soft, tender in the right and left lower quadrants. No guarding or rigidity noted. Bowel sounds audible. Acute proximal colitis: Continue supportive care. Surgery consulted. Ischemic versus infectious. Patient did have diarrhea prior to coming to the ER. [facility] she has not had any new episodes of diarrhea in the past 24-48 hours. Will start clears if patient is able to tolerate. Continue IV antibiotics. Sepsis: Due to colitis. Will treat as above. Diabetes mellitus type 2: Controlled. Continue monitoring blood sugars. Adjust insulin regimen accordingly. Coronary artery disease: No chest pain reported. Resume home medications when patient is able to take oral medications. DVT prophylaxis with SCDs. <Angelique León - Last Filed: 01/14/18 17:35> Hospitalist Progress Note - Encounter Date of Encounter: 01/14/18 Time of Encounter: 12:29 - Subjective Interval History: Pt seen and examined resting comfortably at bedside in no acute distress eating clear liquid diet. Notes mild abdominal pain and nausea that has decreased in intensity but still persists. Denies fevers/chills, headache, vision changes, chest pain, SOB, vomiting, diarrhea, dysuria. Currently managed with Flagyl and Levaquin. CT ABD/PELVIS w/out contrast: IMPRESSION: 1. Inflammatory changes involving a 10 cm segment of the proximal right colon and cecum concerning for acute mild-moderate colitis. No abscess. No free intraperitoneal air. Follow-up recommended to confirm resolution. 2. Normal appendix. - Exam Vitals: Temp Pulse Resp BP Pulse Ox 98.0 F 104 15 107/67 94 01/14/18 11:04 01/14/18 11:04 01/14/18 11:04 01/14/18 11:04 01/14/18 11:04 Exam: GEN: AOx3; NAD; Resting comfortably in bed HEENT: Atraumatic, Normocephalic CARDIO: RRR, no murmurs, rubs, gallops RESP: CTAB, no wheezes, rales, rhonchi ABD: Soft; mildly diffuse tenderness to palpation especially in RLQ and LLQ; no rebound tenderness or guarding NEURO: CN 2-12 intact; no focal deficits EXT: non-tender, no LE edema b/l - Assessment and Plan (1) Sepsis Current Visit: Yes Status: Acute Assessment and Plan: 57 y/o F with PMHx significant for HTN, [place], DMII, COPD who presents with 1 week of nausea and vomiting, and 5 days bloody diarrhea, associated with severe abdominal pain and cramping. Initial Vitals in ED: T = 98.3F, HR = 71; RR = 18; BP = 90/63; WBC = 3.6 Trop: Negative EKG: NSR; No ST Changes CXR: No acute abnormality CT ABD/PELVIS w/o contrast: IMPRESSION: 1. Inflammatory changes involving a 10 cm segment of the proximal right colon and cecum concerning for acute mild-moderate colitis. No abscess. No free intraperitoneal air. Follow-up recommended to confirm resolution. 2. Normal appendix. Pt was given IVF in the ED. [place] better and BP improved. Admitted due to Colitis Currently hemodynamically stable; Mild TTP in LLQ and RLQ; otherwise NAD. Advanced to clear liquids as of now PLAN: Cont IV antibiotics - Levaquin and Flagyl Follow up Blood Cultures Cont IV Fluids Hold Home Meds for now PRN Pain Control and Nausea Control (2) Colitis Current Visit: Yes Status: Acute Assessment and Plan: PLAN: Cont IV antibiotics - Flagyl and Levaquin Cont IV Fluids Advance diet as tolerated - currently on clear liquids Per surgery consult, no intervention at this time; colonoscopy once acute inflammation resolves; repeat CT abdomen/pelvis after patient has responded to treatment and abdominal pain subsides (3) Diabetes type 2, controlled Current Visit: Yes Status: Chronic Assessment and Plan: Monitor blood glucose Insulin Sliding Scale Hold Home meds (4) CAD (coronary artery disease) Current Visit: Yes Status: Chronic Assessment and Plan: No chest pain as of now EKG: NSR, no ST changes Hold Home meds for now (5) Hypokalemia Current Visit: Yes Status: Acute Assessment and Plan: K = 2.8 this AM PLAN: Replete with 40mg BID Recheck in the AM (6) DVT prophylaxis Current Visit: Yes Status: Acute Assessment and Plan: SCDs DVT Prophylaxis: SCDs - Time Spent with Patient Total time spent is greater than 50% in coordination of care (as documented) at patient's floor/unit and/or counseling patient: less than 15 minutes Plan of Care Discussed with: patient Internal Medicine: Result - Labs CBC & Chem 7: 01/14/18 04:03 01/14/18 04:03 Labs: Short CBC 01/13/18 01/14/18 Range/Units 16:35 04:03 WBC 3.6 L 3.2 L (4.3-11.1) K/mcL Hgb 12.7 11.8 (11.5-15.4) g/dL Hct 36.2 35.6 (35.3-44.9) % Plt Count 97 L 89 L (140-400) K/mcL Neutrophils # 2.0 1.4 L (1.6-8.9) K/mcL BMP 01/13/18 01/13/18 01/14/18 16:35 22:58 04:03 Sodium 140 141 Potassium 2.6 L 2.8 L 2.8 L Chloride 103 106 Carbon Dioxide 29 27 BUN 33 H 24 H Creatinine 1.37 H 0.80 Glucose 110 H 96 Calcium 8.5 L 8.0 L Cardiac Enzymes 01/13/18 Range/Units 16:35 Troponin I 0.03 (< 0.04) ng/mL Liver Function 01/13/18 01/14/18 Range/Units 16:35 04:03 Total Bilirubin 0.2 L 0.2 L (0.3-1.0) mg/dL AST 20 16 (13-39) Units/L ALT 15 13 (7-52) Units/L Alkaline Phosphatase 39 33 L (34-104) Units/L Albumin 3.3 L 3.1 L (3.5-5.7) g/dL Urine 01/13/18 Range/Units 17:05 Urine Color Yellow (Yellow) Urine Clarity Cloudy A (Clear) Urine pH 7.0 (5.0-8.0) pH Units Ur Specific [place] 1.005 L (1.010-1.025) Urine Protein Trace (Neg-Trace) mg/dL Urine Glucose (UA) Normal (Normal) mg/dL - ABG Interpretation ABG results: PT/INR, D-dimer PT 11.9 Seconds (9.4-12.1) 01/13/18 22:58 - Impressions Impressions Chest X-Ray 01/13/18 16:19 IMPRESSION: No acute abnormality detected. D/ / Chandra Melchor MD / Chandra Melchor MD Interpreting Provider: Chandra Melchor MD Abdomen/Pelvis CT 01/13/18 16:58 IMPRESSION: 1. Inflammatory changes involving a 10 cm segment of the proximal right colon and cecum concerning for acute mild-moderate colitis. No abscess. No free intraperitoneal air. Follow-up recommended to confirm resolution. 2. Normal appendix. D/ / 01/13/2018 18:01:51 Antonio Trammell MD / gelacio Interpreting Provider: Antonio Trammell MD <Angel Rosales - Last Filed: 01/14/18 13:28> (1) Diabetes type 2, controlled Qualifiers: Diabetes mellitus alf insulin use: without meterman use Diabetes mellitus complication status: without complication Qualified Code(s): E11.9 - Type 2 diabetes mellitus without complications (2) CAD (coronary artery disease) Qualifiers: Coronary Disease-Associated Artery/Lesion type: [place] artery [place] vs. transplanted heart: [place] heart Associated angina: without angina Qualified Code(s): I25.10 - Atherosclerotic heart disease of [place] coronary artery without angina pectoris (4) Sepsis Qualifiers: Sepsis type: sepsis due to unspecified organism Qualified Code(s): A41.9 - Sepsis, unspecified organism <Angelique León - Last Filed: 01/14/18 17:35> (1) Sepsis Qualifiers: Sepsis type: sepsis due to unspecified organism Qualified Code(s): A41.9 - Sepsis, unspecified organism (3) Diabetes type 2, controlled Qualifiers: Diabetes mellitus meterman insulin use: without meterman use Diabetes mellitus complication status: without complication Qualified Code(s): E11.9 - Type 2 diabetes mellitus without complications (4) CAD (coronary artery disease) Qualifiers: Coronary Disease-Associated Artery/Lesion type: [place] artery [place] vs. transplanted heart: [place] heart Associated angina: without angina Qualified Code(s): I25.10 - Atherosclerotic heart disease of [place] coronary artery without angina pectoris
--- NOTE | 2018-01-14 15:51 | General Surgery Consult Note ---
Date of Encounter: 01/14/18 Time of Encounter: 15:31 History of Present Illness Reason for consult: abdominal pain (right sided colitis) Requesting physician: Mike Clement History of present illness: 57-year-old morbidly obese female admitted after presenting to the emergency department 01/13/18 with a one-week history of abdominal pain, protracted nausea and vomiting. She describes a 5 day history of diarrhea, occasionally bloody. On presentation, white count was 3.6 with hemoglobin 12.7, hematocrit 36.2. Platelet count was notably low at 97,000. Differential is unremarkable. Electrolytes notable for potassium of 2.8, BUN 33, creatinine 1.37. LFTs were normal but total serum protein is diminished at 5.7 CT abdomen/pelvis demo nstrates circumferential colonic wall thickening right colon/cecum with mesenteric edema. No extra luminal inflammation or air. No evidence of perforation. Past medical history: COPD; diabetes; sleep apnea; obesity; hypertension; myocardial infarction, status post coronary stent(s); depression. There is a history of cancer - the patient indicates cancer of the left wrist but medical records suggest the presence of lymphoma. The patient denies A history of lymphoma. She denies being actively treated with chemotherapy. Patient also describes an aortic valve that "does not close properly" Surgical history: Angioplasty with stents; cancer surgery (left wrist) cholecystectomy; hysterectomy; transposition of the median nerve left elbow Patient describes prior colonoscopy approximately 3 years ago completed in [place]. Allergies: Aminophyllin, atorvastatin, penicillin, sulfa, regadenosen Medications: List obtained from medical records Albuterol inhaler 2 puffs every 4 hours Aspirin 81 mg by mouth daily Ibuprofen 6 or milligrams by mouth every 8 hours as needed Ranitidine 10 mg by mouth daily Melatonin 5 mg by mouth daily at bedtime Metoprolol 50 mg by mouth daily Nitroglycerin 0.4 mg sublingually every 5 minutes as needed for chest Ranolazine 1000 mg by mouth twice a day Metformin 1000 mg by mouth daily Cholecalciferol (vitamin D3) 2000 units by mouth daily Cyanocobalamin 1000 g by mouth daily Gabapentin 3 mg by mouth twice a day Pantoprazole 40 mg by mouth every morning Rosuvastatin 10 mg by mouth daily Fluticasone/Vilanterol 200/25 g per inhalation 1 puff daily Lisinopril with hydrochlorothiazide 20/12.5 one by mouth every 12 hours Roflumalast 500 g by mouth daily Tiotropium 2 puffs daily Trazodone 150 mg by mouth daily at bedtime Social history: Patient admits to 3 packs daily for 30+ years; smoking a few months ago. Patient admits to alcoholic consumption as a young woman, none recently. She denies any illicit drug use. Physical examination reveals a morbidly obese female who appears older than her stated age. She is in no acute distress. 1.57 m tall, 94.2 kg, BMI 38.0. The patient has been afebrile, currently 98.0, pulse 73, respirations 15, blood pressure 114/66. SPO2 on room air 94% The patient is edentulous skin was warm, no obvious jaundice Lungs: Clear though bibasilar breath sounds are diminished Cardiac: Soft murmur but rate regular Abdomen: Obese with right lower quadrant and periumbilical tenderness. No detected intra-abdominal masses though exam limited by body habitus. Hypoactive bowel sounds Extremities: No detected clubbing, cyanosis. CT abdomen/pelvis - reviewed with [facility] Labs: White count this morning is diminished at 3.2, hemoglobin 11.8, hematocrit 35.6. Platelet count has fallen to 89,000. Neutrophils are low at 1.4; The remaining differential remains within normal limits Electrolytes remain notable for potassium of 2.8; BUN improved to 24, cre atinine improved to 0.8. Impression: 57-year-old female referred to surgical services/GI coverage for abdominal pain with abnormal CT demonstrating circumferential colonic wall thickening of the cecum/ascending colon. There are no signs of obstruction. The findings are consistent with colitis though the etiology remains obscure. The patient denies any recent antibiotic therapy. Patient indicates her last antibiotics were taken in June 2017. Differential includes a nonspecific colitis, infectious colitis such as C. difficile, and if the patient is is being treated for cancer, typhlitis Recommendations: Continue Levaquin and metronidazole as initiated by the admitting service Repeat CT abdomen/pelvis after the patient has responded to treatment with resolution of her abdominal pain Colonoscopy once the acute inflammatory changes have subsided. Check medical record/[facility] for more complete information about the patient's "cancer" Past Med Surg Social Fam HX - Past Medical History Medical history: arthritis, asthma, cancer, COPD, diabetes, hypertension, myocardial infarction Additional medical history: sleep apnea Psychiatric history: anxiety, depression - Past Surgical History Surgical History: angioplasty/stent, cancer surgery, cholecystectomy, hysterectomy Additional surgical history: Polyps removed twice, surgery on nerves in L arm - Social History Smoking Status: Former smoker Smokeless Tobacco Status: No Alcohol use: none Drug use: none - Family History Mother Hx Family Cardiac Disorders: Yes Hx Family Respiratory Disorders: No Hx Family Cancer: Yes (breast) Hx Family GI Disorders: Yes (diverticulitis, polyps) Hx Family Endocrine Disorder: Yes Hx Family Musculoskeletal Disorders: Yes Hx Family Neuromuscular Disorders: No Hx Family Neurologic Disorders: Yes Hx Family HEENT Disorders: No Hx Family Autoimmune Disorders: No Hx Family Psychosocial Disorders: Yes Medications and Allergies Albuterol Sulfate [Albuterol Inhaler] 2 puff IH Q4HR 12/13/15 [History] Aspirin [Lo-Dose Aspirin EC] 81 mg PO DAILY 12/13/15 [History] Ibuprofen [Motrin] 600 mg PO Q8HR PRN 12/13/15 [History] Loratadine [Allergy Relief] 10 mg PO DAILY 12/13/15 [History] Melatonin 5 mg PO HS 12/13/15 [History] Metoprolol [Lopressor] 50 mg PO DAILY 12/13/15 [History] Nitroglycerin [Nitrostat] 0.4 mg SL PRN PRN 12/13/15 [History] Ranolazine [Ranexa] 1,000 mg PO BID 12/13/15 [History] metFORMIN [Glucophage] 1,000 mg PO DAILY 12/13/15 [History] Cholecalciferol (Vitamin D3) [Vitamin D3] 2,000 unit PO DAILY 07/11/17 [History] Cyanocobalamin (Vitamin B-12) [Vitamin B-12] 1,000 mcg PO DAILY 07/11/17 [History] Gabapentin [Neurontin] 300 mg PO BID 07/11/17 [History] Pantoprazole Sodium [Protonix] 40 mg PO QAM 07/11/17 [History] Rosuvastatin Calcium [Crestor] 10 mg PO DAILY 07/11/17 [History] Fluticasone/Vilanterol [Breo Ellipta 200-25 Mcg INH] 1 puff IH DAILY 01/13/18 [History] Lisinopril-HCTZ 20-12.5 [Prinzide 20-12.5] 1 tab PO Q12H 01/13/18 [History] Roflumilast [Daliresp] 500 mcg PO DAILY 01/13/18 [History] Tiotropium Floral [Spiriva Respimat] 2 puff IH DAILY 01/13/18 [History] Trazodone HCl 150 mg PO HS 01/13/18 [History] Allergy/AdvReac Type Severity Reaction Status Date / Time aminophylline Allergy Anaphylaxis Verified 07/11/17 19:55 atorvastatin AdvReac Gastrointestinal Verified 07/11/17 19:55 Upset Penicillins AdvReac Hives Verified 07/11/17 19:55 Sulfa (Sulfonamide AdvReac Hives Verified 07/11/17 19:55 Antibiotics) regadenosen Allergy Swelling Uncoded 07/11/17 19:55 of Lip/Tongue/Throat Review of Systems All systems PM: The remainder of the systems were reviewed and are negative General Surgery Exam Initial Vital Signs Temp Pulse Resp BP Pulse Ox 98.3 F 71 18 90/63 97 01/13/18 16:14 01/13/18 16:14 01/13/18 16:14 01/13/18 16:14 01/13/18 16:14 Exam Initial Vital Signs Temp Pulse Resp BP Pulse Ox 98.3 F 71 18 90/63 97 01/13/18 16:14 01/13/18 16:14 01/13/18 16:14 01/13/18 16:14 01/13/18 16:14 Results - Labs 01/14/18 04:03 01/14/18 04:03 Abnormal lab results WBC 3.2 K/mcL (4.3-11.1) L 01/14/18 04:03 RBC 3.73 M/mcL (3.82-4.97) L 01/14/18 04:03 Plt Count 89 K/mcL (140-400) L 01/14/18 04:03 Neutrophils # 1.4 K/mcL (1.6-8.9) L 01/14/18 04:03 Reactive Lymphocytes Present (Not Present) A 01/13/18 16:35 Platelet Estimate Decreased (Normal) L 01/14/18 04:03 Immature Plt Fraction 6.4 % (1.1-6.1) H 01/14/18 04:03 Potassium 2.8 mEq/L (3.5-5.1) L 01/14/18 04:03 BUN 24 mg/dL (6-20) H 01/14/18 04:03 BUN/Creatinine Ratio 30 (6-26) H 01/14/18 04:03 POC Glucose 135 mg/dL (70-99) H 01/14/18 11:00 Lactic Acid 0.4 mmol/L (0.5-2.2) L 01/14/18 04:03 Calcium 8.0 mg/dL (8.6-10.3) L 01/14/18 04:03 Total Bilirubin 0.2 mg/dL (0.3-1.0) L 01/14/18 04:03 Alkaline Phosphatase 33 Units/L (34-104) L 01/14/18 04:03 Serum Total Protein 5.3 g/dL (6.4-8.9) L 01/14/18 04:03 Albumin 3.1 g/dL (3.5-5.7) L 01/14/18 04:03 Globulin 2.2 g/dL (2.4-3.5) L 01/14/18 04:03 Urine Clarity Cloudy (Clear) A 01/13/18 17:05 Ur Specific [place] 1.005 (1.010-1.025) L 01/13/18 17:05 Urine Microscopic RBC 3-5 per hpf (0-3) H 01/13/18 17:05 Urine Microscopic WBC 3-5 per hpf (0-3) H 01/13/18 17:05 Ur Squamous Epith Cells Many per lpf (None-Few) H 01/13/18 17:05 Stool Occult Bld Scrn Positive (Negative) A 01/13/18 16:25 Diabetes panel 01/13/18 01/13/18 01/14/18 Range/Units 16:35 22:58 04:03 Sodium 140 141 (136-145) mEq/L Potassium 2.6 L 2.8 L 2.8 L (3.5-5.1) mEq/L Chloride 103 106 (98-107) mEq/L Carbon Dioxide 29 27 (23-29) mEq/L BUN 33 H 24 H (6-20) mg/dL Creatinine 1.37 H 0.80 (0.60-1.20) mg/dL Glucose 110 H 96 (70-105) mg/dL Calcium 8.5 L 8.0 L (8.6-10.3) mg/dL AST 20 16 (13-39) Units/L ALT 15 13 (7-52) Units/L Alkaline Phosphatase 39 33 L (34-104) Units/L Albumin 3.3 L 3.1 L (3.5-5.7) g/dL Thyroid panel 01/13/18 Range/Units 16:35 TSH 1.093 (0.340-5.600) mcIU/mL Calcium panel 01/13/18 01/14/18 Range/Units 16:35 04:03 Calcium 8.5 L 8.0 L (8.6-10.3) mg/dL Albumin 3.3 L 3.1 L (3.5-5.7) g/dL Pituitary panel 01/13/18 01/13/18 01/14/18 Range/Units 16:35 22:58 04:03 Sodium 140 141 (136-145) mEq/L Potassium 2.6 L 2.8 L 2.8 L (3.5-5.1) mEq/L Chloride 103 106 (98-107) mEq/L Carbon Dioxide 29 27 (23-29) mEq/L BUN 33 H 24 H (6-20) mg/dL Creatinine 1.37 H 0.80 (0.60-1.20) mg/dL Glucose 110 H 96 (70-105) mg/dL Calcium 8.5 L 8.0 L (8.6-10.3) mg/dL TSH 1.093 (0.340-5.600) mcIU/mL Adrenal panel 01/13/18 01/13/18 01/14/18 Range/Units 16:35 22:58 04:03 Sodium 140 141 (136-145) mEq/L Potassium 2.6 L 2.8 L 2.8 L (3.5-5.1) mEq/L Chloride 103 106 (98-107) mEq/L Carbon Dioxide 29 27 (23-29) mEq/L BUN 33 H 24 H (6-20) mg/dL Creatinine 1.37 H 0.80 (0.60-1.20) mg/dL Glucose 110 H 96 (70-105) mg/dL Calcium 8.5 L 8.0 L (8.6-10.3) mg/dL Total Bilirubin 0.2 L 0.2 L (0.3-1.0) mg/dL AST 20 16 (13-39) Units/L ALT 15 13 (7-52) Units/L Alkaline Phosphatase 39 33 L (34-104) Units/L Albumin 3.3 L 3.1 L (3.5-5.7) g/dL All other labs normal. Consult Discharge Plan - Plan Referrals: Concepción Romero MD [Primary Care Provider] -
[2018-01-14] MEDS: OXYCODONE Oral CONC 10 MG/0.5 ML ORAL.SYG SL PRN (18:02)
[2018-01-14] MEDS: 0.9 % Sodium Chloride w KCl 20 MEQ/1,000 ML MLS IVC SCH (19:27)
[2018-01-14] MEDS: Promethazine 12.5 MG in 0.9 % Sodium Chloride 50 ML IVPB PRN (22:02)
[2018-01-15] MEDS: OXYCODONE Oral CONC 10 MG/0.5 ML ORAL.SYG SL PRN ×3 (00:13→18:20)
[2018-01-15] MEDS: MetroNIDAZOLE 500 MG/100 ML 500 MG/100 ML BAG IVPB SCH ×3 (00:13→15:01)
[2018-01-15] MEDS: Ondansetron 4 MG/2 ML VIAL IVP PRN ×3 (01:15→19:44)
[2018-01-15] MEDS: Ipratropium/Albuterol Neb 3 ML IH SCH ×4 (04:03→23:08)
[2018-01-15 04:47] LABS: Basophils % 0.3 %; Immature Granulocytes % 0.3 % (0-4); Red Cell Distribution Width 13.2 % (11.5-14.5)
[2018-01-15 04:49] LABS: Eosinophils # 0.1 K/mcL (0.0-0.6); Eosinophils % 1.5 %; Hematocrit 33.9 % (35.3-44.9); Hemoglobin 11.6 g/dL (11.5-15.4); Immature Platelets 5.7 % (1.1-6.1); Lymphocytes % 60.8 %; Mean Corpuscular HGB Conc 34.2 g/dL (31.6-35.5); Mean Corpuscular Hemoglobin 32.5 pg (28.0-33.3); Mean Platelet Volume 10.7 fL (9.4-12.4); Monocytes # 0.3 K/mcL (0.0-1.3); Monocytes % 8.3 %; Neutrophils # 0.9 K/mcL (1.6-8.9); Platelet Count 98 K/mcL (140-400); Red Blood Count 3.57 M/mcL (3.82-4.97); Segmented Neutrophils % 28.8 %
[2018-01-15 05:03] LABS: BUN/Creatinine Ratio 23 (6-26); Blood Urea Nitrogen 15 mg/dL (6-20); Calcium 8.2 mg/dL (8.6-10.3); Carbon Dioxide 24 mEq/L (23-29); Chloride 110 mEq/L (98-107); Glucose 131 mg/dL (70-105); Osmolality,Calculated 295 (280-300); Potassium 3.4 mEq/L (3.5-5.1); Sodium 141 mEq/L (136-145); eGFR For Non-African Americans > 60 (> 60)
[2018-01-15 05:19] LABS: Platelet Estimate Slight Decrease (Normal); Reactive Lymphocytes Present (Not Present)
--- NOTE | 2018-01-15 07:47 | Internal Med Progress Note ---
<RandyanetaAngel - Last Filed: 01/15/18 12:57> Hospitalist Progress Note - Encounter Date of Encounter: 01/15/18 Time of Encounter: 09:15 - Exam Vitals: Temp Pulse Resp BP Pulse Ox 98.1 F 75 18 93/57 95 01/15/18 10:55 01/15/18 10:55 01/15/18 10:55 01/15/18 10:55 01/15/18 10:55 - Assessment and Plan (1) Diabetes type 2, controlled Current Visit: Yes Status: Chronic (2) CAD (coronary artery disease) Current Visit: Yes Status: Chronic (3) Colitis Current Visit: Yes Status: Acute (4) Sepsis Current Visit: Yes Status: Acute (5) DVT prophylaxis Current Visit: Yes Status: Acute - Time Spent with Patient Total time spent is greater than 50% in coordination of care (as documented) at patient's floor/unit and/or counseling patient: Internal Medicine: Result - Labs CBC & Chem 7: 01/15/18 04:22 01/15/18 04:22 Labs: Short CBC 01/15/18 Range/Units 04:22 WBC 3.2 L (4.3-11.1) K/mcL Hgb 11.6 (11.5-15.4) g/dL Hct 33.9 L (35.3-44.9) % Plt Count 98 L (140-400) K/mcL Neutrophils # 0.9 L (1.6-8.9) K/mcL BMP 01/15/18 04:22 Sodium 141 Potassium 3.4 L Chloride 110 H Carbon Dioxide 24 BUN 15 Creatinine 0.64 Glucose 131 H Calcium 8.2 L - ABG Interpretation ABG results: PT/INR, D-dimer PT 11.9 Seconds (9.4-12.1) 01/13/18 22:58 - Impressions Impressions Abdomen/Pelvis CT 01/13/18 16:58 IMPRESSION: 1. Inflammatory changes involving a 10 cm segment of the proximal right colon and cecum concerning for acute mild-moderate colitis. No abscess. No free intraperitoneal air. Follow-up recommended to confirm resolution. 2. Normal appendix. D/ / 01/13/2018 18:01:51 Antonio Trammell MD / gelacio Interpreting Provider: Antonio Trammell MD Consult Discharge Plan - Plan Referrals: Concepción Romero MD [Primary Care Provider] - - Attending Attestation I saw evaluated and examined this patient and my medical decision-making was reviewed with the Resident Physician, Angelique León. I agree with the documented findings, disposition and treatment plan as described except to any changes set forth below. We independently had [id number] contact with the patient. Patient continues to have nausea but abdominal pain is improving. Tolerating liquid diet well so far. Denies any fevers or chills. Has not had any new episodes of diarrhea. 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 This was surgically without any chemotherapy. It has been more than a year and half since. On exam, patient is awake and alert. S1 and S2 normal. Breath sounds are normal. Abdomen is soft, tender in the right and left lower quadrants. No guarding or rigidity noted. Bowel sounds audible. No pedal edema. Acute proximal colitis: As pain is improving, will begin to advance diet. Continue IV antibiotics. No surgery indication. Moderate risk for complications Sepsis: Resolving. Blood cultures have been negative. Diabetes mellitus type 2: Remained controlled. Will place patient on ADA diet when she is able to eat Coronary artery disease: Will restart aspirin, metoprolol Hypokalemia: Improved with repletion. Potassium 3.4 today. <Angelique León - Last Filed: 01/15/18 14:08> Hospitalist Progress Note - Encounter Date of Encounter: 01/15/18 Time of Encounter: 07:46 - Subjective Interval History: Pt seen and examined resting comfortably at bedside in no acute distress. AOx3, alert. NO acute events overnight. Tolerated clear liquid diet. Asking to advance diet, and so will advance to full liquid diet this morning. Endorses only mild abdominal pain and nausea, but tolerable. Denies headache, vision changes, SOB, chest pain, vomiting, diarrhea, weakness, fatigue. - Exam Vitals: Temp Pulse Resp BP Pulse Ox 98.3 F 69 14 107/74 93 01/15/18 04:58 01/15/18 04:58 01/15/18 04:58 01/15/18 04:58 01/15/18 04:58 Exam: GEN: AOx3; NAD; Resting comfortably in bed HEENT: Atraumatic, Normocephalic CARDIO: RRR, no murmurs, rubs, gallops RESP: CTAB, no wheezes, rales, rhonchi ABD: Soft; mildly tenderness to palpation especially LLQ>RLQ; no rebound tenderness or guarding; bowel sounds present NEURO: CN 2-12 intact; no focal deficits EXT: non-tender, no LE edema b/l - Assessment and Plan (1) Sepsis Current Visit: Yes Status: Acute Assessment and Plan: 57 y/o F with PMHx significant for HTN, [place], DMII, COPD who presents with 1 week of nausea and vomiting, and 5 days bloody diarrhea, associated with severe abdominal pain and cramping. Initial Vitals in ED: T = 98.3F, HR = 71; RR = 18; BP = 90/63; WBC = 3.6 Trop: Negative EKG: NSR; No ST Changes CXR: No acute abnormality CT ABD/PELVIS w/o contrast: IMPRESSION: 1. Inflammatory changes involving a 10 cm segment of the proximal right colon and cecum concerning for acute mild-moderate colitis. No abscess. No free intraperitoneal air. Follow-up recommended to confirm resolution. 2. Normal appendix. Pt was given IVF in the ED. [place] better and BP improved. 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 Inflammatory changes involving a 10 cm segment of the proximal right colon and cecum concerning for acute mild-moderate colitis. No abscess. No free intraperitoneal air. Follow-up recommended to confirm resolution. 2. Normal appendix. PLAN: Cont IV antibiotics - Flagyl and Levaquin Cont IV Fluids Advance diet as tolerated - currently on full liquid diet Per surgery consult, no intervention at this time; colonoscopy once acute inflammation resolves; repeat CT abdomen/pelvis after patient has responded to treatment and abdominal pain subsides (3) Diabetes type 2, controlled Current Visit: Yes Status: Chronic Assessment and Plan: Monitor blood glucose Insulin Sliding Scale Hold Home meds Advancing diet as tolerated to full liquid diet today Diabetic Diet when patient can tolerate regular diet (4) CAD (coronary artery disease) Current Visit: Yes Status: Chronic Assessment and Plan: No chest pain as of now EKG: NSR, no ST changes PLAN: Restart aspirin, metoprolol, crestor (5) Hypokalemia Current Visit: Yes Status: Acute Assessment and Plan: K = 3.4 this AM PLAN: Replete with 40mg BID Recheck in the AM (6) DVT prophylaxis Current Visit: Yes Status: Acute Assessment and Plan: SCDs DVT Prophylaxis: SCDs - Time Spent with Patient Total time spent is greater than 50% in coordination of care (as documented) at patient's floor/unit and/or counseling patient: less than 15 minutes Plan of Care Discussed with: patient Internal Medicine: Result - Labs CBC & Chem 7: 01/15/18 04:22 01/15/18 04:22 Labs: Short CBC 01/15/18 Range/Units 04:22 WBC 3.2 L (4.3-11.1) K/mcL Hgb 11.6 (11.5-15.4) g/dL Hct 33.9 L (35.3-44.9) % Plt Count 98 L (140-400) K/mcL Neutrophils # 0.9 L (1.6-8.9) K/mcL BMP 01/15/18 04:22 Sodium 141 Potassium 3.4 L Chloride 110 H Carbon Dioxide 24 BUN 15 Creatinine 0.64 Glucose 131 H Calcium 8.2 L - ABG Interpretation ABG results: PT/INR, D-dimer PT 11.9 Seconds (9.4-12.1) 01/13/18 22:58 <BobbyAngel - Last Filed: 01/15/18 12:57> (1) Diabetes type 2, controlled Qualifiers: Diabetes mellitus oil heaterman insulin use: without oil heaterman use Diabetes mellitus complication status: without complication Qualified Code(s): E11.9 - Type 2 diabetes mellitus without complications (2) CAD (coronary artery disease) Qualifiers: Coronary Disease-Associated Artery/Lesion type: [place] artery [place] vs. transplanted heart: [place] heart Associated angina: without angina Qualified Code(s): I25.10 - Atherosclerotic heart disease of [place] coronary artery wit hout angina pectoris (4) Sepsis Qualifiers: Sepsis type: sepsis due to unspecified organism Qualified Code(s): A41.9 - Sepsis, unspecified organism <Angelique León - Last Filed: 01/15/18 14:08> (1) Sepsis Qualifiers: Sepsis type: sepsis due to unspecified organism Qualified Code(s): A41.9 - Sepsis, unspecified organism (3) Diabetes type 2, controlled Qualifiers: Diabetes mellitus oil heaterman insulin use: without assisted use Diabetes mellitus complication status: without complication Qualified Code(s): E11.9 - Type 2 diabetes mellitus without complications (4) CAD (coronary artery disease) Qualifiers: Coronary Disease-Associated Artery/Lesion type: [place] artery [place] vs. transplanted heart: [place] heart Associated angina: without angina Qualified Code(s): I25.10 - Atherosclerotic heart disease of [place] coronary artery without angina pectoris
[2018-01-15] MEDS: Ranolazine 500 MG TAB.ER.12H PO SCH ×2 (08:11→21:11)
[2018-01-15] MEDS: Insulin LISPRO 300 UNITS/3 ML VIAL SQ SCH ×3 (08:14→16:56)
[2018-01-15] MEDS: Levofloxacin 750 MG/150 ML 750 MG/150 ML BAG IVPB SCH (08:14)
[2018-01-15] MEDS: Gabapentin 300 MG CAPSULE PO SCH ×2 (08:14→21:12)
[2018-01-15] MEDS: Breo Ellipta 200-25 Mcg IH SCH (08:15)
[2018-01-15] MEDS: DALIRESP 500 MCG PO SCH (08:15)
[2018-01-15] MEDS: Promethazine 12.5 MG in 0.9 % Sodium Chloride 50 ML IVPB PRN ×2 (12:57→22:17)
[2018-01-15] MEDS ORDERED: Nitroglycerin 0.4 MG TAB.SUBL SL PRN (13:03)
[2018-01-15] MEDS ORDERED: traZODone 50 MG TABLET PO SCH (21:00)
[2018-01-16] MEDS: MetroNIDAZOLE 500 MG/100 ML 500 MG/100 ML BAG IVPB SCH ×2 (00:38→09:09)
[2018-01-16] MEDS: Ipratropium/Albuterol Neb 3 ML IH SCH ×3 (04:36→16:34)
[2018-01-16] MEDS: OXYCODONE Oral CONC 10 MG/0.5 ML ORAL.SYG SL PRN ×2 (05:47→12:23)
[2018-01-16 05:51] LABS: Red Cell Distribution Width 13.1 % (11.5-14.5)
[2018-01-16 05:53] LABS: Hematocrit 32.9 % (35.3-44.9); Hemoglobin 11.1 g/dL (11.5-15.4); Immature Platelets 4.8 % (1.1-6.1); Lymphocytes # 1.9 K/mcL (0.6-4.6); Mean Corpuscular HGB Conc 33.7 g/dL (31.6-35.5); Mean Corpuscular Hemoglobin 32.5 pg (28.0-33.3); Mean Corpuscular Volume 96.2 fL (83.0-100.0); Mean Platelet Volume 10.4 fL (9.4-12.4); Platelet Count 101 K/mcL (140-400); Red Blood Count 3.42 M/mcL (3.82-4.97)
[2018-01-16 06:14] LABS: BUN/Creatinine Ratio 25 (6-26); Blood Urea Nitrogen 15 mg/dL (6-20); Calcium 8.3 mg/dL (8.6-10.3); Carbon Dioxide 26 mEq/L (23-29); Chloride 111 mEq/L (98-107); Glucose 138 mg/dL (70-105); Osmolality,Calculated 293 (280-300); Sodium 140 mEq/L (136-145); eGFR For Non-African Americans > 60 (> 60)
[2018-01-16 06:53] LABS: Monocytes # 0.1 K/mcL (0.0-1.3); Neutrophils # 1.2 K/mcL (1.6-8.9)
[2018-01-16 06:54] LABS: Platelet Estimate Normal (Normal)
[2018-01-16] MEDS: Insulin LISPRO 300 UNITS/3 ML VIAL SQ SCH ×2 (08:39→12:22)
[2018-01-16] MEDS ORDERED: Aspirin Enteric Coated 81 MG Tablet PO SCH (09:00)
[2018-01-16] MEDS: Breo Ellipta 200-25 Mcg IH SCH (09:01)
[2018-01-16] MEDS: DALIRESP 500 MCG PO SCH (09:01)
[2018-01-16] MEDS: Gabapentin 300 MG CAPSULE PO SCH (09:09)
[2018-01-16] MEDS: Ranolazine 500 MG TAB.ER.12H PO SCH (09:09)
[2018-01-16] MEDS: Levofloxacin 750 MG/150 ML 750 MG/150 ML BAG IVPB SCH (09:10)
[2018-01-16] MEDS: Promethazine 12.5 MG in 0.9 % Sodium Chloride 50 ML IVPB PRN (10:19)
[2018-01-16 11:27] VITALS: BP 108/73
--- NOTE | 2018-01-16 12:51 | Discharge Summary ---
<Sonia Perez - Last Filed: 01/16/18 13:07> - NOTES TO OUTPATIENT PROVIDER Notes to Outpatient Provider: Follow up with PCP in the next 5-7 days for re- evaluation Orders not resulted at time of discharge: Pending orders 01/13/18 22:27 ECG 12 lead ECG [ECG] Routine 01/13/18 22:58 Culture,Blood [BC] Stat Date of Encounter: 01/16/18 Time of Encounter: 12:49 - Discharge Diagnosis (1) Colitis Priority: Primary Status: Acute (2) CAD (coronary artery disease) Priority: Secondary Status: Chronic Qualifiers: Coronary Disease-Associated Artery/Lesion type: [place] artery [place] vs. transplanted heart: [place] heart Associated angina: without angina Qualified Code(s): I25.10 - Atherosclerotic heart disease of [place] coronary artery without angina pectoris (3) Diabetes type 2, controlled Priority: Secondary Status: Chronic Qualifiers: Diabetes mellitus terminal [place] insulin use: without snf use Diabetes mellitus complication status: without complication Qualified Code(s): E11.9 - Type 2 diabetes mellitus without complications (4) Hypokalemia Priority: Primary Status: Acute (5) Essential hypertension Priority: Secondary Status: Chronic Hospital course: Ms. Kapadia is a 57 year old female who presented on 01/13/18 with abdominal pain, nausea, vomiting, bloody stools with subjective fever and chills. Was seen in the emergency department and admitted to the general medicine floor with diagnosis of colitis. Patient had CT of the abdomen and pelvis on 01/13/18 which showed colitis to the proximal right colon and cecum and was started on levaquin and flagyl. Patient continued to do well, with stable vital signs, remained afebrile. Was noted to be have slightly low blood pressure, lopressor was decreased from 50 mg to 25 mg. Patient was found to have hypokalemia, which was replaced, at time of discharge, potassium within normal limits. On presentation, white count was 3.6, at time of discharge 3.2, LFTs were normal but total serum protein is diminished at 5.7, platelets at admission was notably low at 96, at this time 101. General surgery was consulted, recommended outpatient colonoscopy to be performed, referral was written at time of discharge. Patient able to walk without difficulty, tolerating oral intake without concern. Chronic conditions have been treated. Will discharge patient with rx for outpatient levaquin and flagyl for total course of 7 days. Recommend to patient outpatient follow up with PCP in 5-7 days, return precautions discussed with patient and she is in agreement. Discharge discussed with: patient - Time Spent with Patient Total time spent providing and/or coordinating discharge services: Greater than 30 minutes - Discharge Medications Prescriptions: levoFLOXacin [Levaquin] 750 mg PO DAILY 4 Days #4 tablet RX: Metoprolol [Lopressor] 25 mg PO DAILY 30 Days #30 tablet metroNIDAZOLE [Flagyl] 500 mg PO TID 4 Days #4 tablet Home Medications: RX: Albuterol Sulfate [Albuterol Inhaler] 2 puff IH Q4HR 12/13/15 [History] RX: Aspirin [Lo-Dose Aspirin EC] 81 mg PO DAILY 12/13/15 [History] RX: Ibuprofen [Motrin] 600 mg PO Q8HR PRN 12/13/15 [History] RX: Loratadine [Allergy Relief] 10 mg PO DAILY 12/13/15 [History] RX: Melatonin 5 mg PO HS 12/13/15 [History] RX: Nitroglycerin [Nitrostat] 0.4 mg SL PRN PRN 12/13/15 [History] RX: Ranolazine [Ranexa] 1,000 mg PO BID 12/13/15 [History] RX: metFORMIN [Glucophage] 1,000 mg PO DAILY 12/13/15 [History] RX: Cholecalciferol (Vitamin D3) [Vitamin D3] 2,000 unit PO DAILY 07/11/17 [History] RX: Cyanocobalamin (Vitamin B-12) [Vitamin B-12] 1,000 mcg PO DAILY 07/11/17 [History] RX: Gabapentin [Neurontin] 300 mg PO BID 07/11/17 [History] RX: Pantoprazole Sodium [Protonix] 40 mg PO QAM 07/11/17 [History] RX: Rosuvastatin Calcium [Crestor] 10 mg PO DAILY 07/11/17 [History] RX: Fluticasone/Vilanterol [Breo Ellipta 200-25 Mcg INH] 1 puff IH DAILY 01/13/18 [History] RX: Lisinopril-HCTZ 20-12.5 [Prinzide 20-12.5] 1 tab PO Q12H 01/13/18 [History] RX: Roflumilast [Daliresp] 500 mcg PO DAILY 01/13/18 [History] RX: Tiotropium [place] [Spiriva Respimat] 2 puff IH DAILY 01/13/18 [History] RX: Trazodone HCl 150 mg PO HS 01/13/18 [History] RX: Metoprolol [Lopressor] 25 mg PO DAILY 30 Days #30 tablet 01/16/18 [Rx] levoFLOXacin [Levaquin] 750 mg PO DAILY 4 Days #4 tablet 01/16/18 [Rx] metroNIDAZOLE [Flagyl] 500 mg PO TID 4 Days #4 tablet 01/16/18 [Rx] Allergies/Adverse Reactions: Allergy/AdvReac Type Severity Reaction Status Date / Time aminophylline Allergy Anaphylaxis Verified 07/11/17 19:55 atorvastatin AdvReac Gastrointestinal Verified 07/11/17 19:55 Upset Penicillins AdvReac Hives Verified 07/11/17 19:55 Sulfa (Sulfonamide AdvReac Hives Verified 07/11/17 19:55 Antibiotics) regadenosen Allergy Swelling Uncoded 07/11/17 19:55 of Lip/Tongue/Throat Date of admission: 01/13/18 22:27 Primary care physician: Concepción Romero MD Consults: 01/13/18 21:59 Consult to Nutrition [CONS] Routine Comment: Consulting Provider: NUTRITION Reason for Dietary Consult: MST Score 01/13/18 22:30 Consult to Physician [CONS] Routine Consulting Provider: Ashish Vail Reason for Consult: colitis with hematochezia Call Completed: Yes Discharging clinician: Sonia Perez Anticipated date of discharge: 01/16/18 - Constitutional Vitals: Temp Pulse Resp BP Pulse Ox 97.8 F 72 15 108/73 92 01/16/18 11:25 01/16/18 11:25 01/16/18 11:25 01/16/18 11:25 01/16/18 11:25 General appearance: Present: cooperative, mild distress, A&O X 3, pleasant, answers questions appropriately. Absent: cachectic Exam: . - ENT ENT exam: Present: mucous membranes moist - Respiratory Respiratory exam: Present: CTAB. Absent: accessory muscle use - Cardiovascular Cardiovascular exam: Present: RRR - GI/Abdominal GI/Abdominal exam: Present: normal bowel sounds Additional comments: minimal diffuse abdominal pain, greatest to the right upper quadrant, no guarding or rebound - Expanded Neurological Exam Patient oriented to: Present: person, place, time - Psychiatric Psychiatric exam: Present: normal affect, normal mood - Skin Skin exam: Present: intact. Absent: rash - Patient Status Disposition: Home, Self-Care Condition: Good Overall status at discharge: patient is progressing back to baseline - Discharge Instructions Follow Up With: Pati Mcintyre CLERICAL TRANSCRIBER [Advanced Practice Nurse] - 02/06/18 12:30 pm ([place] [facility]. This is the first available appointment for this office. Thank you) Ashish Vail MD [Non-Partnered Physician] - (4-6 weeks for colonoscopy) - Diet and Activity Activity: resume usual activities as tolerated Diet: diabetic diet <Angel Rosales - Last Filed: 01/16/18 15:03> Orders not resulted at time of discharge: Pending orders 01/13/18 22:58 Culture,Blood [BC] Stat Date of Encounter: 01/16/18 Time of Encounter: 14:59 - Discharge Diagnosis (1) Colitis Priority: Primary Status: Acute (2) Diabetes type 2, controlled Status: Chronic Qualifiers: Diabetes mellitus snf insulin use: without snf use Diabetes mellitus complication status: without complication Qualified Code(s): E11.9 - Type 2 diabetes mellitus without complications (3) CAD (coronary artery disease) Status: Chronic Qualifiers: Coronary Disease-Associated Artery/Lesion type: [place] artery [place] vs. transplanted heart: [place] heart Associated angina: without angina Qualified Code(s): I25.10 - Atherosclerotic heart disease of [place] coronary artery without angina pectoris (4) Sepsis Status: Acute Qualifiers: Sepsis type: sepsis due to unspecified organism Qualified Code(s): A41.9 - Sepsis, unspecified organism (5) DVT prophylaxis Status: Acute Hospital course: Ms. Kapadia is a 57 year old female - Time Spent with Patient Total time spent providing and/or coordinating discharge services: Less than 30 minutes (10 min) Date of admission: 01/13/18 22:27 Primary care physician: Concepción Romero MD Consults: 01/13/18 21:59 Consult to Nutrition [CONS] Routine Comment: Consulting Provider: NUTRITION Reason for Dietary Consult: MST Score 01/13/18 22:30 Consult to Physician [CONS] Routine Consulting Provider: Ashish Vail Reason for Consult: colitis with hematochezia Call Completed: Yes - Constitutional Vitals: Temp Pulse Resp BP Pulse Ox 97.8 F 72 15 108/73 92 01/16/18 11:25 01/16/18 11:25 01/16/18 11:25 01/16/18 11:25 01/16/18 11:25 General appearance: Present: cooperative, A&O X 3, answers questions appropriately - Respiratory Respiratory exam: Present: CTAB. Absent: accessory muscle use, rales, rhonchi, wheezes - Cardiovascular Cardiovascular exam: Present: RRR, +S1, +S2. Absent: diastolic murmur, gallop, rubs, systolic murmur - GI/Abdominal GI/Abdominal exam: Present: normal bowel sounds, soft, tenderness (Lower abdominal), no peritoneal signs. Absent: distended - Attending Attestation I saw evaluated and examined this patient and my medical decision-making was reviewed with the Resident Physician, Sonia Perez. I agree with the documented findings, disposition and treatment plan as described except to any changes set forth below. We independently had [id number] contact with the patient. patient with a history of diabetes, hyper nausea vomiting and diarrhea. She was diagnosed with acute colitis involving the proximal colon. She was started on IV antibiotics and kept nothing by mouth. She received IV fluids. Her symptoms slowly improved. She was then transitioned to clear liquids and surgery was also consulted. No surgical interventions were recommended. Patient has been tolerating diet since in her abdominal pain is improving. She is clinically stable to be discharged home on oral antibiotics and will follow up with her PCP for further management. She does need colonoscopy as outpatient in 4-6 weeks.
--- NOTE | 2018-01-16 17:46 | Electrocardiograph Report ---
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
== END 2018-01-16 17:11 | disposition home or self-care (01) | DRG 720 ==
LOC: 3ANU 16:05 → EMEROOARM 16:05 → 3ANU 21:30 → SUATTDRO 22:27
PROVIDERS: ADMIT Internal Medicine; ATTEND Internal Medicine